=== PATIENT | male | born 1945 | race African-American/Black ===

== ENCOUNTER 2016-12-20 11:49 | Inpatient (IN) | payer OTHER ==
[~2016-12-20] VITALS: Ht 182.9 cm; Wt 83.9 kg
--- NOTE | 2016-12-20 12:11 | NUR ---
HX PANCREATIC CANCER
--- NOTE | 2016-12-20 12:11 | NUR ---
EFRAIN FROM HOME FOR GENERALIZED WEAKNESS. PT STATES HE'S BEEN TOOK WEAK TO GET UP. DENIES CP/SOB/N/V/D. C/O POOR APPETITE. MUCOUS MEMBRANES DRY
--- NOTE | 2016-12-20 12:27 | NUR ---
MINA ESQUIVEL TO BEDSIDE FOR EVAL.
--- NOTE | 2016-12-20 12:34 | ED GI/GU/ABDOMINAL COMPLAINT ---
History of Present Illness General Chief Complaint: General Adult Stated Complaint: BIBA GENERALIZED WEAKNESS Source: patient Exam Limitations: no limitations Allergies Coded Allergies: No Known Allergies (12/20/16) Reconcile Medications Bicalutamide 50 MG TABLET 1 TAB PO DAILY UNKNOWN (Reported) Diclofenac Sodium (Voltaren) 1 % GEL..GRAM. 1 GM TOP AD PAIN/INFLAMMATION ( Reported) apply to affected area(s) Hydroxychloroquine Sulfate 200 MG TABLET 1 TAB PO BID UNKNOWN (Reported) Ibuprofen (Advil) 200 MG CAPSULE 1 CAP PO DAILY PAIN (Reported) Leuprolide Acetate (Lupron Depot) 45 MG (6 MONTH) SYRINGEKIT 45 MG IM Q6M UNKNOWN (Reported) Prednisone 5 MG TABLET 1 TAB PO BID STEROID (Reported) Triage Note: BIBA FROM HOME FOR GENERALIZED WEAKNESS. PT STATES HE'S BEEN TOOK WEAK TO GET UP. DENIES CP/SOB/N/V/D. C/O POOR APPETITE. MUCOUS MEMBRANES DRY Triage Nurses Notes Reviewed? yes HPI: 71-year-old male here with multiple medical complaints. For the past 3 or 4 months he has had generalized abdominal pain and distention, mostly right side upper aspect. He has had decreased appetite, weight loss, increased thirst, generalized fatigue and weakness. He was scheduled to see his primary care doctor today but felt too weak to go and they recommended he come to the emergency room for further evaluation. He denies any cough or fever. He has history of prostate cancer with prostate resection approximately 12 years ago. He states he is currently being treated for prostate cancer however he denies being on chemotherapy or radiation. He is a poor historian (ALVIN ENRIQUEZ,MANDI) Vital Signs & Intake/Output Vital Signs & Intake/Output Vital Signs Date Time Temp Pulse Resp B/P Pulse O2 O2 Flow FiO2 Ox Delivery Rate 12/21 0752 97.8 102 20 154/70 96 Room Air 12/20 2305 98.0 98 18 152/82 96 Room Air 12/20 2117 146/78 12/20 2019 97.5 101 16 175/81 97 Room Air 12/20 1815 99.5 102 16 170/80 97 Room Air 12/20 1348 97.9 104 18 167/79 100 Nasal 2.0L Cannula ED Intake and Output 12/21 0000 12/20 1200 Intake Total 1000 Output Total Balance 1000 Intake, IV 1000 Patient 185 lb Weight Past History Medical History Any Pertinent Medical History? see below for history Other Medical Hx: Prostate cancer, malignancy, status post surgery 2003 which was unsuccessful, status post radiation treatment which was unsuccessful. Thyroid disorder, hyperlipidemia, gout, normocytic anemia, impotence, history of smoking, hypertension, rheumatoid arthritis, osteoarthritis, joint pain, urinary incontinence, occult blood in stool, erosive gastritis Surgical History Surgical History: PROSTATECTOMY 2002 Psychosocial History What is your primary language Kyrgyz Family History Hx Contributory? No (MANDI LEMUS) Review of Systems Review of Systems Constitutional: Reports: see HPI. EENTM: Reports: no symptoms. Respiratory: Reports: no symptoms. Cardiovascular: Reports: no symptoms. GI: Reports: see HPI. Denies: diarrhea, nausea, vomiting. Genitourinary: Reports: no symptoms. Musculoskeletal: Reports: no symptoms. Skin: Reports: no symptoms. Neurological/Psychological: Reports: no symptoms. Hematologic/Endocrine: Reports: no symptoms. Immunologic/Allergic: Reports: no symptoms. All Other Systems: Reviewed and Negative (MANDI LEMUS) Physical Exam Physical Exam Respiratory: normal breath sounds, chest non-tender, no respiratory distress Cardiovascular: tachycardia Gastrointestinal: normal bowel sounds, soft, TENDERNESS DIFFUSELY TO THE ABDOMEN MOSTLY UPPER ABDOMEN, MOST SEVERE AT THE RIGHT UPPER QUADRANT. mILD DIFFUSE ABDOMINAL DISTENTION. sMALL SEEMINGLY FAT CONTAINED REDUCIBLE UMBILICAL HERNIA. Comments: Well-developed well-nourished no apparent distress. Elderly male, appears weak. Mildly cachectic with muscle wasting noted HEENT: Atraumatic, extraocular motion intact, dry mucous membranes Neck: Supple, no lymphadenopathy Back: Nontender Respiratory: No respiratory distress Extremities: +1 bilateral lower extremity pitting edema, full range of motion Neuro: Alert and oriented x3 Psych: Mood affect normal, Skin: Warm and dry, no rash on exposed skin (MANDI LEMUS) Core Measures ACS in differential dx? No Severe Sepsis Present: No Septic Shock Present: No (VICKIE ESTEBAN,FLORENCIO Adams) Progress Differential Diagnosis: AAA, AMI, appendicitis, biliary colic, bowel obstruction , colon cancer, cholecystitis, diverticulitis, epididymitis, esophageal varices, gastritis, hepatitis, hernia, hemorrhoids, ischemic bowel, inflamm bowel dis, [place] tear, orchitis, pancreatitis, prostatitis, peptic ulcer, PUD/GERD, perforated viscous, pyelonephritis, SBO, STD, testicular torsion, ureterolithiasis, urinary retention, urethritis, UTI/pyelo Diagnostic Imaging: Viewed by Me: Radiology Read, CT Scan. Discussed w/RAD: Radiology Read, CT Scan. Radiology Impression: PATIENT: DIYA BANDA PRESENT AGE: 71 PATIENT ACCOUNT NO: [id number] : 47 LOCATION: [facility] ORDERING PHYSICIAN: MANDI ENRIQUEZ SERVICE DATE: 12/20/16 EXAM TYPE: CAT - CT ABD & PELVIS W IV CONTRAST EXAMINATION: CT ABDOMEN AND PELVIS WITH CONTRAST CLINICAL INFORMATION: Intra-abdominal infection. Cholangitis. Abdominal pain. Elevated LFTs. Status post radical prostatectomy. COMPARISON: CT scan abdomen pelvis 05/28/2016. TECHNIQUE: Multidetector volumetric imaging was performed of the abdomen and pelvis before and after the IV administration of 98 mL of Omnipaque 320 intravenous contrast. Sagittal and coronal reformatted images were obtained on the technologist's workstation. DLP: 299.42 mGy-cm FINDINGS: LUNG BASES: 0.8 cm lung nodule along the major fissure in the right lung at the right lung base axial image 45 (3). LIVER, GALLBLADDER, AND BILIARY TREE: Extensive hepatic metastasis. Low attenuating masses throughout both right and left lobes of liver. These are more confluent in the right lobe than the left. No intrahepatic bile duct dilatation. The gallbladder is unremarkable with no evidence of radiopaque gallstones, gallbladder wall thickening, or obvious pericholecystic inflammatory changes. PANCREAS: Unremarkable. SPLEEN: 2.2 x 2.6 cm low attenuating mass lesion at the dome of the spleen suspicious of metastasis. ADRENAL GLANDS: Left adrenal nodule measuring 1.4 cm AP. This is unchanged since CAT scan of 05/28/2016. The right adrenal gland is normal. KIDNEYS AND URETERS: There is hydronephrosis of the right kidney with dilatation of the right renal pelvis calyces and the right ureter. The dilatation is due to obstruction of the right ureter by retroperitoneal lymphadenopathy. At about the level aortic bifurcation extending into the right common iliac external and internal iliac chains there is lymphadenopathy. The adenopathy engulfs the right common iliac artery and causes the obstruction of the right ureter. The left kidney and ureter are normal. [place] for penile implant seen to the right anterior aspect of the bladder BLADDER: Unremarkable. GASTROINTESTINAL TRACT: There is diverticulosis of left colon sigmoid without diverticulitis. No acute change of the bowel. No bowel obstruction. No bowel wall thickening or edema. ABDOMINAL WALL: Fat-containing umbilical hernia. Defect at the abdominal wall measures 2.7 cm transverse, axial image 454 (3). LYMPH NODES: There is bulky retroperitoneal lymphadenopathy that engulfs the right common iliac artery and extends into the external iliac and internal iliac chains. Adenopathy engulfs also the distal IVC. Lymph node measures 4.4 cm AP on image 473 (3) at the right common iliac chain. This mass causes obstruction of the right ureter. VASCULAR: Scattered vascular wall calcifications of aorta and iliac arteries without aneurysm. The right common iliac vessels are involved by enlarged mass of lymph nodes. PELVIC VISCERA: Status post prostatectomy with surgical clips the retrovesical region. Status post penile implant. [place] in the right anterior region of pelvis adjacent to the bladder. A small amount of fluid in the cul-de- sac. OSSEOUS STRUCTURES: Low attenuating lesion in the T11, T12, L2, L4, L5 and S1 vertebrae with evidence of bone destruction suspicious of metastasis. IMPRESSION: 1. Extensive hepatic metastasis. 2. Osseous metastasis. Bone scan could be helpful for further assessment. 3. Retroperitoneal adenopathy. This is causing obstruction of the right kidney. 4. Low attenuating mass and spleen suspicious for metastasis. 5. Penile implant. 6. Status post prostatectomy. 7. 0.8 cm lung nodule right lower lobe. This is suspicious for metastasis. Consider CT chest for further evaluation. This critical result was discussed with MINA Horn on 12/20/2016, 3:05 PM and it was ascertained that the content and urgency of the report was understood at the time of direct communication. DICTATED BY: FRANCO GRUBER MD DATE/TIME DICTATED:12/20/16 1448 SEAMER ELASTIC BAND :SPENCER CXR Impression: PATIENT: DIYA BANDA PRESENT AGE: 71 PATIENT ACCOUNT NO: [id number] : 47 LOCATION: [facility] ORDERING PHYSICIAN: MANDI ENRIQUEZ SERVICE DATE: 12/20/16 EXAM TYPE: RAD - XRY-PORTABLE CHEST XRAY EXAMINATION: XR PORTABLE CHEST CLINICAL INFORMATION: Generalized weakness. COMPARISON: None TECHNIQUE: Portable AP view of the chest was obtained. FINDINGS: Cardiac leads overlie the chest. The lungs are well expanded. There is no focal consolidation, edema, or effusion. No pneumothorax. The cardiomediastinal silhouette is within normal limits. No acute osseous abnormality. IMPRESSION: Clear lungs. DICTATED BY: LETY WILLIAM MD DATE/ TIME DICTATED:12/20/161323 SEAMER ELASTIC BAND:SPENCER DATE/TIME TRANSCRIBED: 11/25 Initial ED EKG: NSR, rate (112), no ST T wave changes Prior EKG: unchanged Rhythm Strip: sinus tachycardia Comments: Patient treated with IV fluids, will obtain labs and CT scan. Patient has significant metastatic disease, significant hypercalcemia and leukocytosis. His chest x-ray is clear. I discussed with the radiologist CT scan findings, he does not see any significant evidence for acute cholecystitis. Blood cultures and lactic acid 2 were obtained, 2 L of IV fluid were given. He 'll require admission to the hospital. We'll cover him with broad-spectrum antibiotics Due to his right kidney obstruction, I discussed this with Dr. Chambers from urology, he will evaluate the patient and plan on stenting tomorrow (ALVIN ENRIQUEZ,MANDI) Plan of Care: Orders Procedure Date/time Status Regular Diet 12/21 B Active PHOSPHORUS 12/21 0600 Complete MAGNESIUM 12/21 0600 Complete CBC WITHOUT DIFFERENTIAL 12/21 0600 Complete CALCIUM 12/21 0600 Complete BASIC ELECTROLYTES PLUS BUN&CR 12/21 0600 Complete Therapeutic Activities 12/21 UNK Complete PT EVAL MOD COMPLEX 30 MIN 12/21 UNK Complete BONE SCAN 12/21 UNK Active Teach/Educate 12/20 2245 Active Nutritional Intake, Monitor 12/20 224 Active Isolation 12/20 224 Active Patient Care Conference 12/20 2246 Active Activity/Ambulation 12/20 2246 Active CALCIUM 12/20 1999 Complete BASIC ELECTROLYTES PLUS BUN&CR 12/20 1999 Complete Admit to inpatient 12/20 1811 Active Pathway - chart 12/20 1800 Active PT Evaluate & Treat 12/20 1747 Active Pathway - chart 12/20 1747 Active House Staff 12/20 1747 Active Code Status 12/20 1747 Active Patient Data 12/20 1608 Active LACTIC ACID 12/20 1517 Complete BLOOD CULTURE 12/20 1516 Active Add-on Test (ER Only) 12/20 1407 Active PARTIAL THROMBOPLASTIN TIME 12/20 1245 Complete PROTHROMBIN TIME 12/20 1245 Complete LACTIC ACID 12/20 1245 Complete VTE Mechanical Prophylaxis 12/20 UNK Active Vital Signs 12/20 UNK Active Precautions 12/20 UNK Active Nursing Misc 12/20 UNK Active Intake & Output 12/20 UNK Active Current Medications Sig/Gagandeep Start time Last Medication Dose Stop Time Status Admin Acetaminophen 650 MG Q6P PRN 12/20 1800 AC (Tylenol) Oxycodone HCl 10 MG Q6P PRN 12/20 1800 AC (Roxicodone) Laboratory Tests 12/21/16 0650: Anion Gap 9, Estimated GFR 55 L, BUN/Creatinine Ratio 28.5 H, Calcium 14.9 *H, Phosphorus 3.9, Magnesium 1.9, CBC w Diff NO MAN DIFF REQ, RBC 4.07 L, MCV 86.2 , MCH 28.0, RDW 13.5, MPV 10.6 H, Gran % 81.7 H, Lymphocytes % 7.4 L, Monocytes % 10.4 H, Eosinophils % 0.5, Basophils % 0 L, Absolute Granulocytes 14.1 H, Absolute Lymphocytes 1.3, Absolute Monocytes 1.8 H, Absolute Eosinophils 0.1, Absolute Basophils 0, PUBS MCHC 32.5 L 12/20/162106: Urine Color YEL, Urine Clarity CLEAR, Urine pH 6.0, Ur Specific [place] 1.015, Urine Protein NEG, Urine Ketones NEG, Urine Nitrite NEG, Urine Bilirubin NEG, Urine Urobilinogen 0.2, Ur Leukocyte Esterase NEG, Ur Microscopic EXAM NOT REQUIRED, Urine Hemoglobin NEG, Urine Glucose NEG 12/20/162052: Anion Gap 7, Estimated GFR > 60, BUN/Creatinine Ratio 33.6 H, Calcium 15.0 *H 12/20/16 1525: Lactic Acid 1.9 Microbiology 12/20 1537 BLOOD: Blood Culture - RECD 12/20 1525 BLOOD: Blood Culture - RECD Departure Departure Disposition: STILL A PATIENT Condition: Stable Clinical Impression Primary Impression: Hypercalcemia Secondary Impressions: Generalized weakness Leukocytosis Qualifiers: Leukocytosis type: unspecified Qualified Code: D72.829 - Elevated white blood cell count, unspecified Obstruction of kidney SIRS (systemic inflammatory response syndrome) Transaminitis Ruled Out Impressions: Hypercalcemia associated with chronic dialysis Referrals: [facility]INO [facility] (PCP/Family) Departure Forms: Customer Survey General Discharge Information Admission Note Spoke With: SHELL JACOBSON MD Documentation of Exam: Documentation of any treatments & extenuating circumstances including Concerns Regarding Discharge (functional status, medication knowledge or non-compliance, living conditions, etc.) that warrant an admission rather than observation: Hypercalcemia to 17,000, Patient meeting steers criteria, possible sepsis, lactic acid elevated, white count 18,000, he has metastatic disease with transaminitis and an obstructed right kidney from lymphadenopathy and will likely require a renal stenting. Possible early cholangitis or pyelonephritis, we'll cover with broad-spectrum antibiotics with Rocephin and Zithromax and admitted to the hospitalist service. Call was placed to urology to have them evaluate him for possible ureteral stenting or nephrostomy tube (MANDI LEMUS) PA/USED EQUIPMENT SALES REPRESENTATIVE Co-Sign Statement Statement: ED Attending supervision documentation- [X] I saw and evaluated the patient. I have also reviewed all the pertinent lab results and diagnostic results. I agree with the findings and the plan of care as documented in the PA's/USED EQUIPMENT SALES REPRESENTATIVE's documentation. [] I have reviewed the ED Record and agree with the PA's/USED EQUIPMENT SALES REPRESENTATIVE's documentation. [] Additions or exceptions (if any) to the PAs/USED EQUIPMENT SALES REPRESENTATIVE's note and plan are summarized below: [] (VICKIE ESTEBAN,FLORENCIO Adams) Transaminitis Ruled Out Impressions: Hypercalcemia associated with chronic dialysis Referrals: AKIL BACK,TINO Sanchez (PCP/Family) Departure Forms: Customer Survey General Discharge Information Admission Note Spoke With: SHELL JACOBSON MD Documentation of Exam: Documentation of any treatments & extenuating circumstances including Concerns Regarding Discharge (functional status, medication knowledge or non-compliance, living conditions, etc.) that warrant an admission rather than observation: Hypercalcemia to 17,000, Patient meeting steers criteria, possible sepsis, lactic acid elevated, white count 18,000, he has metastatic disease with transaminitis and an obstructed right kidney from lymphadenopathy and will likely require a renal stenting. Possible early cholangitis or pyelonephritis, we'll cover with broad-spectrum antibiotics with Rocephin and Zithromax and admitted to the hospitalist service. Call was placed to urology to have them evaluate him for possible ureteral stenting or nephrostomy tube (MANDI LEMUS) PA/USED EQUIPMENT SALES REPRESENTATIVE Co-Sign Statement Statement: ED Attending supervision documentation- [X] I saw and evaluated the patient. I have also reviewed all the pertinent lab results and diagnostic results. I agree with the findings and the plan of care as documented in the PA's/USED EQUIPMENT SALES REPRESENTATIVE's documentation. [] I have reviewed the ED Record and agree with the PA's/USED EQUIPMENT SALES REPRESENTATIVE's documentation. [] Additions or exceptions (if any) to the PAs/USED EQUIPMENT SALES REPRESENTATIVE's note and plan are summarized below: [] (VICKIE ESTEBAN,FLORENCIO Adams)
--- NOTE | 2016-12-20 12:49 | NUR ---
BLOOD DRAWN AND SENT TO LAB. SSTX2,LAV,CLARK,BLUE
[2016-12-20 12:53] LABS: ABSOLUTE BASOPHIL COUNT 0 /CUMM (0.0-0.2); ABSOLUTE EOSINOPHIL COUNT 0 /CUMM (0.0-0.7); ABSOLUTE GRANULOCYTE CT 15.7 /CUMM (1.4-6.5); ABSOLUTE LYMPH COUNT 1.6 /CUMM (1.2-3.4); ABSOLUTE MONOCYTE COUNT 1.1 /CUMM (0.10-0.60); BASOPHIL % 0.1 % (0.0-2.0); EOSINOPHIL % 0.1 % (0-5); HEMATOCRIT 41.4 % (42-52); MEAN CORPUSCULAR HGB 27.8 PG (27.0-31.0); MEAN CORPUSCULAR HGB CONC 32.3 G/DL (33.0-37.0); MEAN PLATELET VOLUME 9.3 FL (7.4-10.4); PLATELET COUNT 302 /CUMM (130-400); RBC DISTRIBUTION WIDTH 13.3 % (11.5-14.5); RED BLOOD CELL CT 4.81 /CUMM (4.70-6.10); WHITE BLOOD CELL COUNT 18.4 /CUMM (4.8-10.8)
[2016-12-20 12:58] LABS: GRANULOCYTE % 85.3 % (42.2-75.2)
--- NOTE | 2016-12-20 13:18 | NUR ---
PT UNABLE TO PROVIDE URINE SAMPLE AT THIS TIME
--- NOTE | 2016-12-20 13:29 | RADIOLOGY REPORT ---
EXAMINATION: XR PORTABLE CHEST CLINICAL INFORMATION: Generalized weakness. COMPARISON: None TECHNIQUE: Portable AP view of the chest was obtained. FINDINGS: Cardiac leads overlie the chest. The lungs are well expanded. There is no focal consolidation, edema, or effusion. No pneumothorax. The cardiomediastinal silhouette is within normal limits. No acute osseous abnormality. IMPRESSION: Clear lungs.
--- NOTE | 2016-12-20 13:38 | NUR ---
CRITICAL TEST RESULTS [id number] DIYA BANDA 71 M TESTS AND RESULTS: CALCIUM 17.2 Results received and read back by: TYLER AUSTIN Results received date and time: 12/20/16 7717 The following provider was notified of the results, and read the results back: MINA ESQUIVEL Notified date and time: 12/20/16 at 4435
--- NOTE | 2016-12-20 14:20 | NUR ---
CRITICAL TEST RESULTS [id number] DIYA BANDA 71 M TESTS AND RESULTS: LACTIC ACID 2.6 Results received and read back by: TYLER AUSTIN Results received date and time: 12/20/16 1420 The following provider was notified of the results, and read the results back: MINA ESQUIVEL Notified date and time: 12/20/16 at 1420
[2016-12-20 14:23] LABS: PTT 35 SEC (25-37)
--- NOTE | 2016-12-20 14:34 | NUR ---
PT TO CT VIA STRETCHER
--- NOTE | 2016-12-20 15:23 | NUR ---
SECOND NS LITER HUNG PER EMAR. PT ATTEMPTED TO PROVIDE URINE SPECIMEN BUT WAS UNABLE TO VOID IN THE URINAL AT THIS TIME.
--- NOTE | 2016-12-20 15:26 | CT SCAN REPORT ---
EXAMINATION: CT ABDOMEN AND PELVIS WITH CONTRAST CLINICAL INFORMATION: Intra-abdominal infection. Cholangitis. Abdominal pain. Elevated LFTs. Status post radical prostatectomy. COMPARISON: CT scan abdomen pelvis 05/28/2016. TECHNIQUE: Multidetector volumetric imaging was performed of the abdomen and pelvis before and after the IV administration of 98 mL of Omnipaque 320 intravenous contrast. Sagittal and coronal reformatted images were obtained on the technologist's workstation. DLP: 299.42 mGy-cm FINDINGS: LUNG BASES: 0.8 cm lung nodule along the major fissure in the right lung at the right lung base axial image 45 (3). LIVER, GALLBLADDER, AND BILIARY TREE: Extensive hepatic metastasis. Low attenuating masses throughout both right and left lobes of liver. These are more confluent in the right lobe than the left. No intrahepatic bile duct dilatation. The gallbladder is unremarkable with no evidence of radiopaque gallstones, gallbladder wall thickening, or obvious pericholecystic inflammatory changes. PANCREAS: Unremarkable. SPLEEN: 2.2 x 2.6 cm low attenuating mass lesion at the dome of the spleen suspicious of metastasis. ADRENAL GLANDS: Left adrenal nodule measuring 1.4 cm AP. This is unchanged since CAT scan of 05/28/2016. The right adrenal gland is normal. KIDNEYS AND URETERS: There is hydronephrosis of the right kidney with dilatation of the right renal pelvis calyces and the right ureter. The dilatation is due to obstruction of the right ureter by retroperitoneal lymphadenopathy. At about the level aortic bifurcation extending into the right common iliac external and internal iliac chains there is lymphadenopathy. The adenopathy engulfs the right common iliac artery and causes the obstruction of the right ureter. The left kidney and ureter are normal. [place] for penile implant seen to the right anterior aspect of the bladder BLADDER: Unremarkable. GASTROINTESTINAL TRACT: There is diverticulosis of left colon sigmoid without diverticulitis. No acute change of the bowel. No bowel obstruction. No bowel wall thickening or edema. ABDOMINAL WALL: Fat-containing umbilical hernia. Defect at the abdominal wall measures 2.7 cm transverse, axial image 454 (3). LYMPH NODES: There is bulky retroperitoneal lymphadenopathy that engulfs the right common iliac artery and extends into the external iliac and internal iliac chains. Adenopathy engulfs also the distal IVC. Lymph node measures 4.4 cm AP on image 473 (3) at the right common iliac chain. This mass causes obstruction of the right ureter. VASCULAR: Scattered vascular wall calcifications of aorta and iliac arteries without aneurysm. The right common iliac vessels are involved by enlarged mass of lymph nodes. PELVIC VISCERA: Status post prostatectomy with surgical clips the retrovesical region. Status post penile implant. [place] in the right anterior region of pelvis adjacent to the bladder. A small amount of fluid in the cul-de-sac. OSSEOUS STRUCTURES: Low attenuating lesion in the T11, T12, L2, L4, L5 and S1 vertebrae with evidence of bone destruction suspicious of metastasis. IMPRESSION: 1. Extensive hepatic metastasis. 2. Osseous metastasis. Bone scan could be helpful for further assessment. 3. Retroperitoneal adenopathy. This is causing obstruction of the right kidney. 4. Low attenuating mass and spleen suspicious for metastasis. 5. Penile implant. 6. Status post prostatectomy. 7. 0.8 cm lung nodule right lower lobe. This is suspicious for metastasis. Consider CT chest for further evaluation. This critical result was discussed with MINA Horn on 12/20/2016, 3:05 PM and it was ascertained that the content and urgency of the report was understood at the time of direct communication.
[2016-12-20] MEDS ORDERED: PREDNISONE5 M1 PO (15:29)
[2016-12-20] MEDS ORDERED: ADVIL200 M1 PO (15:29)
--- NOTE | 2016-12-20 15:30 | NUR ---
REPEAT LACTIC ACID AND BLOOD CULTURE SENT TO LAB.
[2016-12-20] MEDS ORDERED: BICALUTAMIDE50 M1 PO (15:42)
[2016-12-20] MEDS ORDERED: HYDROXYCHLOROQ200 M2 PO (15:42)
[2016-12-20] MEDS ORDERED: LUPRON DEPOT45 M1 IM (15:44)
[2016-12-20] MEDS ORDERED: VOLTAREN100 GM TOP (15:45)
--- NOTE | 2016-12-20 17:05 | NUR ---
HOUSE STAFF AT BEDSIDE
--- NOTE | 2016-12-20 17:46 | History & Physical ---
RICK ESTEBAN,[facility] 12/20/16 1744: General Information and HPI MD Statement: I have seen and personally examined DIYA BANDA and documented this H&P. The patient is a 71 year old M who presented with a patient stated chief complaint of generalized weakness and abdominal pain. Source of Information: patient Exam Limitations: no limitations History of Present Illness: This is a 71-year-old very pleasant gentleman with a past medical history of prostate cancer status post prostatectomy, and on Lupron and bicalutamide therapy, HLD, thyroid disorder, rheumatoid arthritis, erosive gastritis, presents to [facility] with complaints of a constellation of symptoms. Pt reports generalized weakness, abdominal pain, decreased appetite, constipation, and inability to ambulate around the house. These symptoms started about 3-4 months ago, however in the past 2 weeks, his symptoms have progressively worsen. Pt localizes his abdominal pain around the right hypochondriac region, sometimes radiating to his back, describing it as sharp pain and rating it a 10 out of 10 when is worse. Pain is worsened by movement, and is not related to food intake. No associated nausea, vomiting or diarrhea. Patient denies any shortness of breath, chest pain, palpitation, fever, chills, nausea, vomiting, dysuria, muscle spasm/ twitching, or confusion. At baseline, patient states that he is independent with his ADLs and ambulates around the house with an aide of a walker. Allergies/Medications Allergies: Coded Allergies: No Known Allergies (12/20/16) Home Med list Bicalutamide 50 MG TABLET 1 TAB PO DAILY UNKNOWN (Reported) Diclofenac Sodium (Voltaren) 1 % GEL..GRAM. 1 GM TOP AD PAIN/INFLAMMATION ( Reported) apply to affected area(s) Hydroxychloroquine Sulfate 200 MG TABLET 1 TAB PO BID UNKNOWN (Reported) Ibuprofen (Advil) 200 MG CAPSULE 1 CAP PO DAILY PAIN (Reported) Leuprolide Acetate (Lupron Depot) 45 MG (6 MONTH) SYRINGEKIT 45 MG IM Q6M UNKNOWN (Reported) Prednisone 5 MG TABLET 1 TAB PO BID STEROID (Reported) Past History Medical History Other Medical Hx: Prostate cancer, malignancy, status post surgery 2002 which was unsuccessful, status post radiation treatment which was unsuccessful. Thyroid disorder, hyperlipidemia, gout, normocytic anemia, impotence, history of smoking, hypertension, rheumatoid arthritis, osteoarthritis, joint pain, urinary incontinence, occult blood in stool, erosive gastritis Surgical History Surgical History: PROSTATECTOMY 2002 Review of Systems Review of Systems Constitutional: Reports: see HPI. EENTM: Denies: blurred vision, double vision, visual changes. Cardiovascular: Denies: palpitations, peripheral edema, syncope. Respiratory: Denies: hemoptysis, orthopnea, short of breath. GI: Denies: distention, bowel incontinence, melena, nausea. Genitourinary: Reports: frequency. Denies: dysuria, hesitation. Musculoskeletal: Denies: joint pain, joint swelling, muscle pain. Skin: Denies: erythema, jaundice, lesions. Neurological/Psychological: Denies: confusion, depressed. Hematologic/Endocrine: Denies: bruising, bleeding. Immunologic/Allergic: Reports: no symptoms. Exam & Diagnostic Data Last 24 Hrs of Vital Signs/I&O Vital Signs Date Time Temp Pulse Resp B/P Pulse O2 O2 Flow FiO2 Ox Delivery Rate 12/20 1815 99.5 102 16 170/80 97 Room Air 12/20 1348 97.9 104 18 167/79 100 Nasal 2.0L Cannula 12/20 1215 97 Room Air 12/20 1200 98.6 113 18 172/89 97 Room Air Intake & Output 12/20 1600 12/20 0800 12/20 0000 Intake Total 1000 Output Total Balance 1000 Intake, IV 1000 Physical Exam General Appearance Alert, Oriented X3, Cooperative, mildly cachetic Skin No Significant Lesion HEENT Atraumatic, dry oral mucosa Neck Supple, No thryomegaly, +2 Carotid Pulse wo Bruit Lymphatic Cervical nl Cardiovascular Regular Rate, Normal S1, Normal S2, No Murmurs, Gallops, Rubs Lungs Clear to Auscultation, Normal Air Movement Abdomen distended, tender to palpation on RUQ with guarding. No rebound tenderness Neurological Normal Speech, Sensation Intact, hyporeflexia Extremities No Clubbing, mild pitting edema of feet b/l Vascular Normal Pulses, Pulses Symmetrical Diagnostic Data Other Results SERVICE DATE: 12/20/16-1406 EXAM TYPE: CAT - CT ABD & PELVIS W IV CONTRAST EXAMINATION: CT ABDOMEN AND PELVIS WITH CONTRAST CLINICAL INFORMATION: Intra-abdominal infection. Cholangitis. Abdominal pain. Elevated LFTs. Status post radical prostatectomy. COMPARISON: CT scan abdomen pelvis 05/28/2016. TECHNIQUE: Multidetector volumetric imaging was performed of the abdomen and pelvis before and after the IV administration of 98 mL of Omnipaque 320 intravenous contrast. Sagittal and coronal reformatted images were obtained on the technologist's workstation. DLP: 299.42 mGy-cm FINDINGS: LUNG BASES: 0.8 cm lung nodule along the major fissure in the right lung at the right lung base axial image 45 (3). LIVER, GALLBLADDER, AND BILIARY TREE: Extensive hepatic metastasis. Low attenuating masses throughout both right and left lobes of liver. These are more confluent in the right lobe than the left. No intrahepatic bile duct dilatation. The gallbladder is unremarkable with no evidence of radiopaque gallstones, gallbladder wall thickening, or obvious pericholecystic inflammatory changes. PANCREAS: Unremarkable. SPLEEN: 2.2 x 2.6 cm low attenuating mass lesion at the dome of the spleen suspicious of metastasis. ADRENAL GLANDS: Left adrenal nodule measuring 1.4 cm AP. This is unchanged since CAT scan of 05/28/2016. The right adrenal gland is normal. KIDNEYS AND URETERS: There is hydronephrosis of the right kidney with dilatation of the right renal pelvis calyces and the right ureter. The dilatation is due to obstruction of the right ureter by retroperitoneal lymphadenopathy. At about the level aortic bifurcation extending into the right common iliac external and internal iliac chains there is lymphadenopathy. The adenopathy engulfs the right common iliac artery and causes the obstruction of the right ureter. The left kidney and ureter are normal. [place] for penile implant seen to the right anterior aspect of the bladder BLADDER: Unremarkable. GASTROINTESTINAL TRACT: There is diverticulosis of left colon sigmoid without diverticulitis. No acute change of the bowel. No bowel obstruction. No bowel wall thickening or edema. ABDOMINAL WALL: Fat-containing umbilical hernia. Defect at the abdominal wall measures 2.7 cm transverse, axial image 454 (3). LYMPH NODES: There is bulky retroperitoneal lymphadenopathy that engulfs the right common iliac artery and extends into the external iliac and internal iliac chains. Adenopathy engulfs also the distal IVC. Lymph node measures 4.4 cm AP on image 473 (3) at the right common iliac chain. This mass causes obstruction of the right ureter. VASCULAR: Scattered vascular wall calcifications of aorta and iliac arteries without aneurysm. The right common iliac vessels are involved by enlarged mass of lymph nodes. PELVIC VISCERA: Status post prostatectomy with surgical clips the retrovesical region. Status post penile implant. [place] in the right anterior region of pelvis adjacent to the bladder. A small amount of fluid in the cul-de-sac. OSSEOUS STRUCTURES: Low attenuating lesion in the T11, T12, L2, L4, L5 and S1 vertebrae with evidence of bone destruction suspicious of metastasis. IMPRESSION: 1. Extensive hepatic metastasis. 2. Osseous metastasis. Bone scan could be helpful for further assessment. 3. Retroperitoneal adenopathy. This is causing obstruction of the right kidney. 4. Low attenuating mass and spleen suspicious for metastasis. 5. Penile implant. 6. Status post prostatectomy. 7. 0.8 cm lung nodule right lower lobe. This is suspicious for metastasis. Consider CT chest for further evaluation. This critical result was discussed with MINA Horn on 12/20/2016, 3:05 PM and it was ascertained that the content and urgency of the report was understood at the time of direct communication. DICTATED BY: FRANCO GRUBER MD Assessment/Plan Assessment: This is a 71-year-old male with an extensive history of prostate cancer including a remote history of prostatectomy, and a reported history of radiation therapy? currently on bicalutamide and Lupron hormonal therapy presents with generalized weakness since 3-4 months ago, worsening progression in the past 2 weeks. Patient is also endorsing right upper quadrant abdominal pain. Vital signs at admission: BP 167/79, pulse 104, temperature 97.9, respiratory 18 , O2 97 on room air. Labs are remarkable for hypercalcemia with a level of 17.2. CT of the abdomen and pelvis was remarkable for metastatic hepatic lesion and multiple low attenuating lesions at T11, T12, L2 L4, L5 and S1 with evidence of osteoblastic presentation suspicious of metastasis. Assessment and plan #Hypercalcemia Patient symptoms of lethargy/weakness, abdominal, polyuria, and dehydration are consistent with hypercalcemia. 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 Patient will benefit from aggressive hydration and biphosphonate therapy. Plan * Admit to general medicine floor * Normal saline hydration at 200 mls/hr * Strict ins and outs * IV pamidronate * Serial calcium q 6-8h * Will obtain oncology consult #Vertebral metastasis CT exhibited low attenuation lesions from thoracic to sacral spine suggests metastasis. Currently patient is not endorsing any significant back pain. However, will need to evaluate whether patient is a candidate for palliative radiation. Plan Will consult oncology #Liver mets Hypoattenuation areas seen on CT. #Ureteral obstruction with lymphadenopathy (right side) Will obtain urology consult for evaluation of stent placement. #Leukocytosis Most likely hemoconcentration and not infectious etiology in the setting of physical examination suggesting dehydration and elevated BUN/creatinine ratio. Patient is afebrile. Will continue to trend CBC #Hyperkalemia Mild elevation. Will trend BEP. As Ranked By This Provider Problem List: 1. Leukocytosis Qualifiers Leukocytosis type: unspecified Qualified Code: D72.829 - Elevated white blood cell count, unspecified 2. Hypercalcemia 3. Obstruction of kidney Core Measures/Miscellaneous Acute Coronary Syndrome ACS Diagnosis: No Cerebrovascular Accident CVA/TIA Diagnosis: No Congestive Heart Failure CHF Diagnosis: No Venous Thromboembolism VTE Risk Factors: Acute medical illness, Age > 40 VTE Prophylaxis Ordered Inpt: Mechanical (ALPS/TEDS) No Mech VTE prophylaxis d/t: No contraindications No VTE Pharm Prophylaxis d/t: No contraindications VTE Diagnosis: No VTE Type: NONE VTE Confirmed by (Test): NONE Severe Sepsis Severe Sepsis Present: No Septic Shock Septic Shock Present: No Miscellaneous Documentation Attending Case Discussed With: SHELL JACOBSON MD Primary Care Physician: [employer] Patient sees these Specialists oncologist Level of Patient Care: General Medicine SHELL JACOBSON 12/20/16 9132: Attending MD Review Statement Attending Statement Attending MD Statement: examined this patient, discuss w/resident/PA/PERSONAL INVESTMENT ADVISER, agreed w/resident/PA/PERSONAL INVESTMENT ADVISER, reviewed EMR data (avail) Attending Assessment/Plan: 71-year-old male with past medical history of prostate cancer status post prostatectomy in the past many years ago, currently on hormonal therapy admitted with chief complaint of generalized weakness and decreased by mouth intake and decreased urine output worse over the last 2 weeks. Patient has been having generalized weakness over the last few months especially last 3-4 months and since it was progressively getting worse decided to come to the emergency room.. Patient also complained of abdominal pain in the right upper quadrant and constipation with last bowel movement being 7 days ago. In emergency room patient was found to have severe hypercalcemia with calcium level of 17.2 and hyperkalemia with potassium of 5.2. Patient on CAT scan was found to have metastatic disease to the liver as well as multiple lesions in the spine at multiple levels as well as lymphadenopathy involving the iliac area and the retroperitoneal areas causing right ureteral obstruction. Patient on exam was found to have dry mucous membranes ,decreased skin turgor and right upper quadrant tenderness. Assessment and plan 1 hypercalcemia severe-Will give IV fluids as with normal saline at 200 cc an hour. Patient did receive IV fluid boluses in the emergency room. We will also give IV pamidronate given the severe hypercalcemia and will get oncology on board. We'll do serial calcium checks every 8 hours for now. #2. Metastatic disease to liver with transaminitis as well as metastatic disease to spine-Will get oncology on board and see if patient would need radiation therapy. Discussed with patient the CAT scan findings of metastatic disease to the liver as well as spine as well as ureteral obstruction. Patient does understand the severity of the disease and the limited treatment options. #3. Right ureteral obstruction from lymphadenopathy-Will get urology consult to see if patient would be a candidate for stent placement versus IR guided nephrostomy tube placement. We will put patient on strict intake and output to monitor his urine output and will watch for fluid overload. Next Discussed with patient in detail the care plan. PATSY VALDES 12/20/16 4785: Past Family/Social History Family History Relations & Conditions if any Relation not specified for: *No pertinent family history Resident Review Statement Resident Statement: examined this patient, discussed with [employer] internship, agreed with [employer]ba internship, reviewed EMR data (avail) Other Findings: She is a 71 years old gentleman with past medical history significant for prostate cancer diagnosed since 2002 status post prostatectomy chemotherapy and radiotherapy currently on hormonal therapy, rheumatoid arthritis on hydroxychloroquine who presented with 2-3 month history of progressive weakness that has worsened in the past 2 weeks impairing his ability to move around even doing short errands like went to the bathroom. Patient denies any shortness of breath associated with weakness, he denies any chest pain palpitation dizziness or lightheadedness but reports decreased appetite weight loss and constipation with almost 10 days without a bowel movement. This patient used to get his treatment at [facility] he is not very sure about his treatment regimen has changed doctors recently and does not remember the name of his oncologist. He volunteers right hypochondrium pain aggravated with movement related with diet radiating to the back 10 out of 10 at its center here form. He denies any fevers or chills and reports that he gets slight relief with [id number] pain medication which she has used sparingly. He has back pain that is nonradiating and not associated with lower limb weakness tingling or numbness but reports 2 weeks of urinary retention with wound tightly urine leaks without any dysuria. On arrival in the ER the patient was afebrile tachycardic at 113 and respiration of 18 blood pressure 170/90 and saturating 97% on room air Physical examination: dry mucous membranes, foul-smelling upon talking, poor oral hygiene, reduced skin turgor CVS: regular rate and rhythm no murmurs RS: clear lungs bilaterally Abdomen: normal contour normal moving with respiration, tenderness especially in the right hypochondrium area could not establish Coleman's sign due to tenderness and no rebound tenderness. Extremities: mild pitting edema Labs: leukocytosis 18,400 with a granulocyte TCC of 85.3%, borderline hyperkalemia of 5.2, raised BUN of 39 with creatinine of 1.2 no previous values patient has no lab values in [place], hypercalcemia or 17.2 by raised AST and ALT of 209 and 111, high alkaline phosphatase of 436 Imaging: CT abdomen and pelvis extensive metastasis to the liver, spleen, enlarged lymph nodes with obstruction of renal pelvis, bone metastasis around several lumbar vertebra assessment and plan 71 years old presenting with advanced metastatic prostate cancer with hypercalcemia of 17.2 and lethargy for the past 2 months worsening in the past 2 weeks with difficulty passing urine and incontinence, he has reduced appetite and constipation for the past 10 days. Problem list Hypercalcemia Leukocytosis Metastatic prostate cancer Transaminitis Acute kidney injury Admitting the patient to general medicine floor Vitals every shift Bladder scan every shift if urine more than 400 mL straight cath protocol Hydration with normal saline at 200 mL/h to maintain high urine output of more than 100 mL per hour, strict I&O's Pamidronate 60 mg stat Cover the patient empirically with Ceftriaxone 100mg daily Urine culture, blood culture Trend her liver functions and renal functions PT evaluation a.m. Bowel regimen with MiraLAX and senna if no bowel movement till tomorrow consider enema Pain management with acetaminophen, Roxicodone and morphine Urologist and oncologist consults CODE STATUS so far is full code, discussion with family in the a.m. on CODE STATUS
--- NOTE | 2016-12-20 18:24 | NUR ---
AVSS. PT MORE ALERT, SKIN PINK.
--- NOTE | 2016-12-20 18:27 | Admission Certification ---
Admission Certification Certification Statement - As attending physician, I certify that at the time of - admission, based on clinical presentation, severity of - symptoms, need for further diagnostic testing and - therapeutic interventions, and risk of adverse outcomes - without in-hospital treatment, in my clinical assessment, - this patient requires an acute hospital stay for a minimum - of two nights or longer. I have also considered psychsocial - factors such as support system, advanced age, financial - issues, cognitive issues, and failed out-patient treatments, - past re-admission history, safety of patient, and lack of - compliance as applicable. Specific rationale supporting this admission is: severe hypercalcemia and metastatic prostate cancer with rt ureteral obstruction and metastatic bone and liver disease
--- NOTE | 2016-12-20 19:27 | NUR ---
PT HAS BED ASSIGNMENT 217-1. BED IS NOT CLEANED YET
--- NOTE | 2016-12-20 19:42 | NUR ---
PHARMACY CALLED FOR MED CLARIFICATION
--- NOTE | 2016-12-20 19:49 | NUR ---
PAGER [phone] PAGED FOR LAB TIME CLARIFICATION
--- NOTE | 2016-12-20 20:41 | NUR ---
BEEPER [phone] PAGED AGAIN FOR MED CLARIFICATION
--- NOTE | 2016-12-20 21:23 | NUR ---
REPORT GIVEN TO BETHANY LAYTON
[2016-12-20 23:05] VITALS: BP 152/82
--- NOTE | 2016-12-21 07:14 | Cons- Urology ---
General Information and HPI Consulting Request Date of Consult: 12/21/16 Requested By: Jessica Montes MD,SHELL Wells Reason for Consult: R hydronephrosis and metastatic prostate ca Source of Information: old records Exam Limitations: no limitations History of Present Illness: This patient underwent radical prostatectomy by the [facility] in 2002. He then had post op RT and also had a penile prosthesis in placed. He did not have urologic f/u after this. He was seen in our office in 05/2016 with a PSA of 9.9. Bone scan was negative and CT showed some retroperitoneal adenopathy. He was started on casodex and given a 6 month Lupron injection on . He is due for his next injection the first week of December 2016. He was admitted to the hospital with weakness and difficulty ambulating which has gotten progressively worse. Labs are significant for hypercalcemia and CT scan shows significant retroperitoneal adenopathy causing mild to moderate R hydronephrosis, and bulky liver mets. He denies any R flank pain but admits to RUQ pain Allergies/Medications Allergies: Coded Allergies: No Known Allergies (12/20/16) Home Med List: Bicalutamide 50 MG TABLET 1 TAB PO DAILY UNKNOWN (Reported) Diclofenac Sodium (Voltaren) 1 % GEL..GRAM. 1 GM TOP AD PAIN/INFLAMMATION ( Reported) apply to affected area(s) Hydroxychloroquine Sulfate 200 MG TABLET 1 TAB PO BID UNKNOWN (Reported) Ibuprofen (Advil) 200 MG CAPSULE 1 CAP PO DAILY PAIN (Reported) Leuprolide Acetate (Lupron Depot) 45 MG (6 MONTH) SYRINGEKIT 45 MG IM Q6M UNKNOWN (Reported) Prednisone 5 MG TABLET 1 TAB PO BID STEROID (Reported) Current Medications: Current Medications Sig/Gagandeep Start time Last Medication Dose Route Stop Time Status Admin Acetaminophen 650 MG Q6P PRN 12/20 1800 AC PO Bicalutamide 50 MG DAILY 12/21 1000 AC PO Ceftriaxone Sodium 1,000 MG DAILY 12/21 1000 AC IV Ceftriaxone Sodium 0 .STK-MED ONE 12/20 1809 DC .ROUTE Ceftriaxone Sodium 1,000 MG ONCE ONE 12/20 1615 DC 12/20 IV 12/20 1616 1815 Heparin Sodium 5,000 UNIT Q8 12/20 2200 AC 12/21 (Porcine) SC 0558 Metronidazole 500 MG ONCE ONE 12/20 1615 DC 12/20 N/A 1 UNIT IV 12/20 1714 1820 Morphine Sulfate 2 MG Q6PRN PRN 12/20 1800 AC 12/21 IV 0602 Oxycodone HCl 10 MG Q6P PRN 12/20 1800 AC PO Pamidronate Disodium 60 MG ONE ONE 12/20 2000 DC 12/20 Sodium Chloride 1,000 ML IV 12/20 2359 2110 Polyethylene Glycol 17 GM DAILY 12/20 1800 AC PO Senna/Docusate Sodium 2 TAB DAILY PRN 12/20 1800 AC PO Sodium Chloride 1,000 ML .Q5H 12/20 1745 AC 12/21 IV 12/21 0844 0558 Sodium Chloride 1,000 ML BOLUS ONE 12/20 1415 DC 12/20 IV 12/20 1514 1523 Sodium Chloride 1,000 ML BOLUS ONE 12/20 1245 DC 12/20 IV 12/20 1344 1317 Past History Medical History Blood Transfusion Hx: No Other Medical Hx: Prostate cancer, malignancy, status post surgery 2002 which was unsuccessful, status post radiation treatment which was unsuccessful. Thyroid disorder, hyperlipidemia, gout, normocytic anemia, impotence, history of smoking, hypertension, rheumatoid arthritis, osteoarthritis, joint pain, urinary incontinence, occult blood in stool, erosive gastritis Surgical History Pertinent Surgical History: PROSTATECTOMY 2002 Psychosocial History Where Do You Live? Home Smoking Status: Former Smoker Exam & Diagnostic Data Vital Signs and I&O Vital Signs Date Time Temp Pulse Resp B/P Pulse O2 O2 Flow FiO2 Ox Delivery Rate 12/20 2305 98.0 98 18 152/82 96 Room Air 12/207 146/78 12/20 2019 97.5 101 16 175/81 97 Room Air 12/20 1815 99.5 102 16 170/80 97 Room Air 12/20 1348 97.9 104 18 167/79 100 Nasal 2.0L Cannula 12/20 1215 97 Room Air 12/20 1200 98.6 113 18 172/89 97 Room Air Intake & Output 12/21 0800 12/21 0000 12/20 1600 12/20 0812/20 0000 12/19 1600 Intake Total 1000 Output Total Balance 1000 Intake, IV 1000 Number 1 Bowel Movements Patient 185 lb Weight No acute distress semi alert. Back: no CVA tenderness Abd: soft. RUQ tenderness without rebound. Lower midline incision is well healed Genitalia: Penile prosthesis in place with pump in R hemiscrotum Laboratory Tests 12/20 1525 Chemistry Sodium (137 - 145 mmol/L) 142 Potassium (3.5 - 5.1 mmol/L) 4.8 Chloride (98 - 107 mmol/L) 107 Carbon Dioxide (22 - 30 mmol/L) 28 Anion Gap (5 - 16) 7 BUN (9 - 20 mg/dL) 37 H Creatinine (0.7 - 1.2 mg/dL) 1.1 Estimated GFR (>60 ml/min) > 60 BUN/Creatinine Ratio (7 - 25 %) 33.6 H Lactic Acid (0.7 - 2.1 mmol/L) 1.9 Calcium (8.4 - 10.2 mg/dL) 15.0 *H Urines Urine Color (YEL,AMB,STR) YEL Urine Clarity (CLEAR) CLEAR Urine pH (5.0 - 8.0) 6.0 Ur Specific [place] (1.001 - 1.035) 1.015 Urine Protein (NEG,<30 MG/DL) NEG Urine Ketones (NEG) NEG Urine Nitrite (NEG) NEG Urine Bilirubin (NEG) NEG Urine Urobilinogen (0.1 - 1.0 EU/dl) 0.2 Ur Leukocyte Esterase (NEG) NEG Ur Microscopic EXAM NOT REQUIRED Urine Hemoglobin (NEG) NEG Urine Glucose (N MG/DL) NEG 12/20 1245 Chemistry Sodium (137 - 145 mmol/L) 142 Potassium (3.5 - 5.1 mmol/L) 5.2 H Chloride (98 - 107 mmol/L) 101 Carbon Dioxide (22 - 30 mmol/L) 32 H Anion Gap (5 - 16) 9 BUN (9 - 20 mg/dL) 39 H Creatinine (0.7 - 1.2 mg/dL) 1.2 Estimated GFR (>60 ml/min) > 60 BUN/Creatinine Ratio (7 - 25 %) 32.5 H Glucose (65 - 99 mg/dL) 106 H Lactic Acid (0.7 - 2.1 mmol/L) 2.6 H Calcium (8.4 - 10.2 mg/dL) 17.2 *H Magnesium (1.6 - 2.3 mg/dL) 2.1 Total Bilirubin (0.2 - 1.3 mg/dL) 0.8 AST (17 - 59 U/L) 209 H ALT (21 - 72 U/L) 111 H Alkaline Phosphatase (< 127 U/L) 436 H Total Protein (6.3 - 8.2 g/dL) 8.3 H Albumin (3.5 - 5.0 g/dL) 3.6 Globulin (1.9 - 4.2 gm/dL) 4.7 H Albumin/Globulin Ratio (1.1 - 2.2 %) 0.8 L Amylase (30 - 110 U/L) 31 Lipase (23 - 300 U/L) 64 Total PSA (0.00 - 4.00 ng/mL) 1.53 Coagulation PT (9.4 - 12.5 SEC) 13.0 H INR (0.90 - 1.17) 1.24 H APTT (25 - 37 SEC) 35 Hematology CBC w Diff MAN DIFF ORDERED WBC (4.8 - 10.8 /CUMM) 18.4 H RBC (4.70 - 6.10 /CUMM) 4.81 Hgb (14.0 - 18.0 G/DL) 13.4 L Hct (42 - 52 %) 41.4 L MCV (80.0 - 94.0 FL) 86.0 MCH (27.0 - 31.0 PG) 27.8 RDW (11.5 - 14.5 %) 13.3 Plt Count (130 - 400 /CUMM) 302 MPV (7.4 - 10.4 FL) 9.3 Gran % (42.2 - 75.2 %) 85.3 H Lymphocytes % (20.5 - 51.1 %) 8.7 L Monocytes % (1.7 - 9.3 %) 5.8 Eosinophils % (0 - 5 %) 0.1 Basophils % (0.0 - 2.0 %) 0.1 Absolute Granulocytes (1.4 - 6.5 /CUMM) 15.7 H Absolute Lymphocytes (1.2 - 3.4 /CUMM) 1.6 Absolute Monocytes (0.10 - 0.60 /CUMM) 1.1 H Absolute Eosinophils (0.0 - 0.7 /CUMM) 0 Absolute Basophils (0.0 - 0.2 /CUMM) 0 Platelet Estimate (ADEQUATE) ADEQUATE Normocytic RBCs VERIFIED Normochromic RBCs VERIFIED PUBS MCHC (33.0 - 37.0 G/DL) 32.3 L Microbiology Date/Time Procedure - Status Source Growth 02/27 1537 Blood Culture - RECD BLOOD 12/20 1525 Blood Culture - RECD BLOOD Assessment/Plan Assessment/Plan Imp: 1. Metastatic prostate ca 2. Mild to moderate R hydronephrosis 3. Hypercalcemia Plan: 1. R hydronephrosis is not an urgent issue at this point as patient has no R flank pain and renal fxn is normal 2. Would get PSA and serum testosterone level 3. continue casodex (bicalutamide) 4. Will be due for Lupron injection in the next few days, anytime after 12/26/16 5. Oncology consult Consult Acknowledgment - Thank you for your consult request.
--- NOTE | 2016-12-21 07:25 | PN- Housestaff ---
See Addendum Subjective Follow-up For: -Hypercalcemia -Prostate cancer -Metastatic disease Subjective: Patient was seen and examined this morning, he was sleeping comfortably on bed, he he denied any pain while resting, reported abdominal pain mainly in the epigastric and right hypochondriac area upon movement. He denied any nausea, vomiting. His last bowel movement was last week. Patient also denied back pain. Patient has chronic history of urinary incontinence since 2008, denied any burning with urination or change in the color of the urine He denied fever, chills, chest pain, palpitation, shortness of breath. Vital signs are stable apart of the heart rate 102 this morning. No overnight events reported by the patient or the nurses. Review of Systems Constitutional: Reports: see HPI. Objective Last 24 Hrs of Vital Signs/I&O Vital Signs Date Time Temp Pulse Resp B/P Pulse O2 O2 Flow FiO2 Ox Delivery Rate 12/21 0752 97.8 102 20 154/70 96 Room Air 12/20 2305 98.0 98 18 152/82 96 Room Air 12/20 2117 146/78 12/20 2019 97.5 101 16 175/81 97 Room Air 12/20 1815 99.5 102 16 170/80 97 Room Air 12/20 1348 97.9 104 18 167/79 100 Nasal 2.0L Cannula 12/20 1215 97 Room Air 12/20 1200 98.6 113 18 172/89 97 Room Air Intake & Output 12/21 1600 12/21 0800 12/21 0000 Intake Total Output Total Balance Number 1 Bowel Movements Patient 83.915 kg Weight Physical Exam General Appearance: Alert, Oriented X3, Cooperative, No Acute Distress Skin: No Rashes, No Breakdown HEENT: Atraumatic, PERRLA, EOMI, Mucous Membr. moist/pink Neck: Supple, No JVD Cardiovascular: Regular Rate, Normal S1, Normal S2, No Murmurs Lungs: Clear to Auscultation, Normal Air Movement Abdomen: Normal Bowel Sounds, Soft, mild tenderness over the epigastric and right hypochodreal regions. Extremities: No Clubbing, No Cyanosis, No Edema, Normal Pulses, No Tenderness/ Swelling Assessment/Plan Assessment: This is a 71-year-old male with an extensive history of prostate cancer s/p prostatectomy 2002 and post op RT, currently following with Dr. Camilleriy, on bicalutamide and Lupron hormonal therapy, urinary incontinence since 200, patient presents on 12/20/16 to ED with chief complaint of generalized weakness that was ongoing for the last 3-4 month with progressive worsening over the past 2 weeks associated with right upper quadrant abdominal pain and constipation. CT of the abdomen and pelvis 12/20/16 IMPRESSION: 1. Extensive hepatic metastasis. 2. Osseous metastasis. Bone scan could be helpful for further assessment. 3. Retroperitoneal adenopathy. This is causing obstruction of the right kidney. 4. Low attenuating mass and spleen suspicious for metastasis. 5. Penile implant. 6. Status post prostatectomy. 7. 0.8 cm lung nodule right lower lobe. This is suspicious for metastasis. Consider CT chest for further evaluation. Problem list 1-hypercalcemia 2-metastatic disease/history of prostate cancer 3-acute kidney injury 4-hyperkalemia 5-lactic acidosis 6-constipation 7-rheumatoid arthritis #Hypercalcemia -Patient presented with calcium of 17.2, mostly malignancy related -Continue aggressive hydration IV fluid 200 mL per hour -Patient received 1 dose of IV pamidronate -Calcium measurement every 8, went down to 14 -Consider calcitonin if the calcium remains elevated -Hematology oncology is on board, thanks the recommendation #Metastatic disease -CT abdomen and pelvis on admission showed extensive hepatic metastasis with transaminitis and bone metastasis -Patient has history of prostate cancer status post prostatectomy and post op radiotherapy in 2002, he didn't follow with urologist after that however he started to see Dr. Dick May 2016 and was started on bicalutamide and Lupron hormonal therapy. The patient reported following up with oncologist at [facility] for one year after the procedure in 2002. -We'll obtain the records from [facility] -Hematology oncology and urology consultation with obtained, thanks recommendation -Patient presented with multiple metastasis without elevation of PSA, 1.53, was 9.9 in May 2016, patient could have new onset of prostate cancer of small cell type that has normal PSA level or has developed new primary malignant tumor -We will obtain CT chest and bone scan -On CT patient had right renal hydronephrosis due to obstruction of right ureter by retroperitoneal lymphadenopathy, per urology, there is no need for urgent stent placement. Possible future plan for right nephrostomy. -Continue Lupron injection, due for next injection is first week of December 2016 -Continue Casodex 50 mg daily by mouth #Leukocytosis - Today 17.2< 18.4 -Most likely hemoconcentration given findings of physical examination doesn't suggest dehydration and elevated BUN/creatinine ratio -Patient is receiving empirical coverage with ceftriaxone 100 mg IV given for presentarion of right hydronephrosis -Blood culture is pending -UA negative -Patient remained afebrile #Lactic acidosis -On presentation 2.6 start to trend down, today is 1.9 -Could be malignancy related superimposed by dehydration #Hyperkalemia -Resolved #Constipation -Patient presented with chronic history of constipation -Last bowel movement was last week -CT abdomen and pelvis on admission revealed diverticulosis of left colon sigmoid without diverticulitis. No acute change of the bowel. No bowel obstruction. No bowel wall thickening or edema. -Continue aggressive bowel regimen #Rheumatoid arthritis -Continue hydroxychloroquine 200 mg by mouth twice a day DVT prophylaxis heparin subcutaneous Diet regular diet Code full Consultation hematology oncology, urology Note: Patient's family wants meeting for goal of care that will be held most probably by tomorrow. Problem List: 1. Prostate CA 2. Metastatic disease 3. Hypercalcemia 4. Generalized weakness 5. Leukocytosis 6. Obstruction of kidney Pain Ratin Pain Location: Epigastric and right hypochondrial abdominal pain on movement Pain Goal: Pain 4 or less Pain Plan: Atenolol 650 every 6 when necessary Oxycodone again 10 mg every 6 when necessary Morphine 2 mg IV every 6 when necessary Tomorrow's Labs & Rationales: CBC, CMP, serum testosterone level
[2016-12-21 07:52] VITALS: BP 154/70
[2016-12-21 08:02] LABS: ABSOLUTE BASOPHIL COUNT 0 /CUMM (0.0-0.2); ABSOLUTE EOSINOPHIL COUNT 0.1 /CUMM (0.0-0.7); ABSOLUTE LYMPH COUNT 1.3 /CUMM (1.2-3.4); WHITE BLOOD CELL COUNT 17.2 /CUMM (4.8-10.8)
--- NOTE | 2016-12-21 08:20 | NUR ---
LATE ENTRY NURSING NOTE: PT ARRIVED TO FLOOR APPROX. 2200 VIA STRETCHER WITHOUT FAMILY AT BEDSIDE. PT AOX3, RA, INCONTINENT. NO OPEN AREAS OR WOUNDS ON SKIN. REDNESS TO BL BUTTOCKS AND INTERGLUTEAL CLEFT, BARRIER CREAM APPLIED. PT HAS REDNESS AND SLIGHT SWELLING TO RT SIDE OF FACE. PT STATED HE HAD THIS AT HOME AND IT LOOKS BETTER NOW THAN IT DID EARLIER TODAY. PLACED BED ALARM, ALPS, IVF. PT IS NPO, PROVIDED ORAL CARE AND LEFT AT BEDSIDE. PT HAD ONE SMALL BAG THAT INCLUDED HIS CELL PHONE, CONCRETER , AND THE EARPHONES THE HOSPITAL PROVIDES. PT ALSO HAD ONE SMALL BAG OF CLOTHING. ORIENTED PT TO CALL [facility], PLACED BED IN LOWEST POSITION. WILL CONTINUE TO MONITOR.
[2016-12-21 08:28] LABS: ABSOLUTE GRANULOCYTE CT 14.1 /CUMM (1.4-6.5); ABSOLUTE MONOCYTE COUNT 1.8 /CUMM (0.10-0.60); BASOPHIL % 0 % (0.0-2.0); EOSINOPHIL % 0.5 % (0-5); GRANULOCYTE % 81.7 % (42.2-75.2); MEAN CORPUSCULAR HGB CONC 32.5 G/DL (33.0-37.0); MEAN CORPUSCULAR VOLUME 86.2 FL (80.0-94.0); MEAN PLATELET VOLUME 10.6 FL (7.4-10.4); PLATELET COUNT 234 /CUMM (130-400); RBC DISTRIBUTION WIDTH 13.5 % (11.5-14.5); RED BLOOD CELL CT 4.07 /CUMM (4.70-6.10)
[2016-12-21 08:33] LABS: HEMATOCRIT 35.1 % (42-52)
--- NOTE | 2016-12-21 09:48 | PN- Student ---
HUSSEIN COLLINS 12/21/16 0921: Subjective Subjective: 71 y.o. male h/o prostatic cancer s/p prostectomy with post-op radiation therapy admitted with hypercalcemia and complaints of RUQ abdominal pain and generalized weakness. Today patient says he is feeling better but has abdominal pain when he coughs or breaths deeply. He has not been OOB. NPO for possible stent today for right hydronephrosis due to retroperitoneal adenopathy. Denies difficulties urinating, but is occasionally incontinent. He says he had a small BM yesterday and has had a small amount of flatus. No other complaints. He spoke with his yesterday who will be visiting him today. ROS: General: neg fever/chills Neuro: neg headache, visual changes Cardiac: neg chest pain, palpitations Lungs: neg SOB GI: pos abdominal pain, neg nausea/vomiting/diarrhea : neg dysuria, urgency, frequency MSK: neg back, neck, LE pain Objective Objective: General: resting in bed, very thin, in no acute distress HEENT: mucous membranes pink and moist, poor dentition Cardiac: S1 and S2 heard, RRR, no M/R/G Lungs: CTA bilaterally, no W/R/R Abdomen: distended, soft, diffuse tenderness to light palpation, most severe in RUQ MSK: athrombics in place on LEs, mild LE edema, calves soft and nontender to palpation, pedal pulses 1+ bilaterally Psych: awake and alert, cooperative and appropraite Results Results: Laboratory Tests 12/21/16 0650: Anion Gap 9, Estimated GFR 55 L, BUN/Creatinine Ratio 28.5 H, Calcium 14.9 *H, Phosphorus 3.9, Magnesium 1.9, CBC w Diff NO MAN DIFF REQ, RBC 4.07 L, MCV 86.2 , MCH 28.0, RDW 13.5, MPV 10.6 H, Gran % 81.7 H, Lymphocytes % 7.4 L, Monocytes % 10.4 H, Eosinophils % 0.5, Basophils % 0 L, Absolute Granulocytes 14.1 H, Absolute Lymphocytes 1.3, Absolute Monocytes 1.8 H, Absolute Eosinophils 0.1, Absolute Basophils 0, PUBS MCHC 32.5 L 12/20/16 0877: Urine Color YEL, Urine Clarity CLEAR, Urine pH 6.0, Ur Specific [place] 1.015, Urine Protein NEG, Urine Ketones NEG, Urine Nitrite NEG, Urine Bilirubin NEG, Urine Urobilinogen 0.2, Ur Leukocyte Esterase NEG, Ur Microscopic EXAM NOT REQUIRED, Urine Hemoglobin NEG, Urine Glucose NEG 12/20/162052: Anion Gap 7, Estimated GFR > 60, BUN/Creatinine Ratio 33.6 H, Calcium 15.0 *H 12/20/16 1525: Lactic Acid 1.9 12/20/16 1245: Anion Gap 9, Estimated GFR > 60, BUN/Creatinine Ratio 32.5 H, Glucose 106 H, Lactic Acid 2.6 H, Calcium 17.2 *H, Magnesium 2.1, Total Bilirubin 0.8, AST 209 H, ALT 111 H, Alkaline Phosphatase 436 H, Total Protein 8.3 H, Albumin 3.6, Globulin 4.7 H, Albumin/Globulin Ratio 0.8 L, Amylase 31, Lipase 64, Total PSA 1.53, PT 13.0 H, INR 1.24 H, APTT 35, CBC w Diff MAN DIFF ORDERED, RBC 4.81, MCV 86.0, MCH 27.8, RDW 13.3, MPV 9.3, Gran % 85.3 H, Lymphocytes % 8.7 L, Monocytes % 5.8, Eosinophils % 0.1, Basophils % 0.1, Absolute Granulocytes 15.7 H, Absolute Lymphocytes 1.6, Absolute Monocytes 1.1 H, Absolute Eosinophils 0, Absolute Basophils 0, Platelet Estimate ADEQUATE, Normocytic RBCs VERIFIED, Normochromic RBCs VERIFIED, PUBS MCHC 32.3 L Microbiology 12/20 1537 BLOOD: Blood Culture - RECD 12/20 1524 BLOOD: Blood Culture - RECD Assessment/Plan Assessment: 71 y.o. male h/o prostatic cancer s/p prostectomy with post-op radiation therapy with metastasis to liver, spine, and possibly spleen and lung; hypercalcemia; and right hydronephrosis due to retroperitoneal adenopathy. Hypercalcemia has improved with hydration and IV pamidronate. Oncology is involved with respect to metastatic prostate cancer. Urology involved with respect to hydronephrosis and metastatic cancer. Plan: 1. Hypercalcemia: - hydration with normal saline - IV pamidronate - serum calcium levels q 8 hrs 2. Right hydronephrosis: - follow urology recomendations - stent procedure versus conservative management - currently NPO for possible stent procedure 3. Metastasis: - follow oncology and urology recomendations - continue casodex and Lupron injections (next due after 12/26/16) - pain control
--- NOTE | 2016-12-21 10:17 | Cons- Oncology ---
General Information and HPI Consulting Request Date of Consult: 12/21/16 Requested By: SHELL JACOBSON MD Reason for Consult: Metastatic prostate cancer Source of Information: patient, old records Exam Limitations: clinical condition History of Present Illness: Mr. Chauhan is a 71-year-old male with metastatic prostate cancer who presents with diffuse pain and abdominal pain. Per records, he has radiacal prostatectomy in [place] in 2002 with post-operative RT. He was seen by Dr. Azevedo's office in May 2016 with elevated PSA of 9.9. Bone scan and CT scan demonstrated retroperitoneal adenopathy. He was started on Lupron every 6 months with Casodex with first dose on 06/24/2016. He was due for one in December 2016. He presented with weakness, diffuse bone pain, and abdominal pain. In the ED, he was noted to have hypercalcemia up to 17.2. He was started on IVF and was given pamidronate 60 mg once. He was noted to have elevated liver enzymes. CT scan of the abomen was noted have extensive hepatic metastasis, osseous metastasis, retroperitoneal adenopathy, obstruction of the right kidney, low attenuating mass in the spleen, and 0.8 cm lung nodule right lower lobe. His PSA was check and was 1.5. Allergies/Medications Allergies: Coded Allergies: No Known Allergies (12/20/16) Home Med List: Bicalutamide 50 MG TABLET 1 TAB PO DAILY UNKNOWN (Reported) Diclofenac Sodium (Voltaren) 1 % GEL..GRAM. 1 GM TOP AD PAIN/INFLAMMATION ( Reported) apply to affected area(s) Hydroxychloroquine Sulfate 200 MG TABLET 1 TAB PO BID UNKNOWN (Reported) Ibuprofen (Advil) 200 MG CAPSULE 1 CAP PO DAILY PAIN (Reported) Leuprolide Acetate (Lupron Depot) 45 MG (6 MONTH) SYRINGEKIT 45 MG IM Q6M UNKNOWN (Reported) Prednisone 5 MG TABLET 1 TAB PO BID STEROID (Reported) Current Medications: Current Medications Sig/Gagandeep Start time Last Medication Dose Route Stop Time Status Admin Acetaminophen 650 MG Q6P PRN 12/20 1800 AC PO Bicalutamide 50 MG DAILY 12/21 1000 AC PO Ceftriaxone Sodium 1,000 MG DAILY 12/21 1000 AC IV Ceftriaxone Sodium 0 .STK-MED ONE 12/20 1809 DC .ROUTE Ceftriaxone Sodium 1,000 MG ONCE ONE 12/20 1615 DC 12/20 IV 12/20 1616 1815 Heparin Sodium 5,000 UNIT Q8 12/20 2200 AC 12/21 (Porcine) SC 0558 Hydroxychloroquine 200 MG BID 12/21 1000 AC Sulfate PO Metronidazole 500 MG ONCE ONE 12/20 1615 DC 12/20 N/A 1 UNIT IV 12/20 1714 1820 Morphine Sulfate 2 MG Q6PRN PRN 12/20 1800 AC 12/21 IV 0602 Non-Formulary 0 SEE ADMIN CRITERIA 12/27 0900 DC Medication ANY Oxycodone HCl 10 MG Q6P PRN 12/20 1800 AC PO Pamidronate Disodium 60 MG ONE ONE 12/20 2000 DC 12/20 Sodium Chloride 1,000 ML IV 12/20 2359 2110 Polyethylene Glycol 17 GM DAILY 12/20 1800 AC PO Senna/Docusate Sodium 2 TAB DAILY PRN 12/20 1800 AC PO Sodium Chloride 1,000 ML .Q5H 12/20 1745 DC 12/21 IV 12/21 0844 0558 Sodium Chloride 1,000 ML BOLUS ONE 12/20 1415 DC 12/20 IV 12/20 1514 1523 Sodium Chloride 1,000 ML BOLUS ONE 12/20 1245 DC 12/20 IV 12/20 1344 1317 Review of Systems Review of Systems Constitutional: Reports: malaise, weakness. Denies: chills, fever. EENTM: Denies: double vision. Cardiovascular: Denies: chest pain. Respiratory: Denies: short of breath. GI: Reports: abdominal pain, bloating. Denies: melena. Genitourinary: Denies: dysuria, hematuria. Musculoskeletal: Reports: back pain, joint pain, muscle pain. Neurological/Psychological: Reports: confusion. Hematologic/Endocrine: Denies: bruising, bleeding. Immunologic/Allergic: Denies: lymphadenopathy. All Other Systems: Reviewed and Negative Past History Travel History Traveled to [place] past 21 day No Medical History Blood Transfusion Hx: No Other Medical Hx: Prostate cancer, malignancy, status post surgery 2002 which was unsuccessful, status post radiation treatment which was unsuccessful. Thyroid disorder, hyperlipidemia, gout, normocytic anemia, impotence, history of smoking, hypertension, rheumatoid arthritis, osteoarthritis, joint pain, urinary incontinence, occult blood in stool, erosive gastritis Surgical History Surgical History: PROSTATECTOMY 2002 Psychosocial History Where Do You Live? Home Smoking Status: Former Smoker Exam & Diagnostic Data Vital Signs and I&O Vital Signs Date Time Temp Pulse Resp B/P Pulse O2 O2 Flow FiO2 Ox Delivery Rate 12/21 0752 97.8 102 20 154/70 96 Room Air 12/20 2305 98.0 98 18 152/82 96 Room Air 12/20 2117 146/78 12/20 2019 97.5 101 16 175/81 97 Room Air 12/20 1815 99.5 102 16 170/80 97 Room Air 12/20 1348 97.9 104 18 167/79 100 Nasal 2.0L Cannula 12/20 1215 97 Room Air 12/20 1200 98.6 113 18 172/89 97 Room Air Intake & Output 12/21 1600 12/21 0800 12/21 0000 Intake Total Output Total Balance Number 1 Bowel Movements Patient 83.915 kg Weight Physical Exam General Appearance: alert, awake, mild distress Head: atraumatic, normal appearance Eyes: Bilateral: PERRL. Ears, Nose, Throat: normal pharynx Neck: normal inspection Respiratory: normal breath sounds, chest non-tender, no respiratory distress, quiet respiration Cardiovascular: tachycardia Gastrointestinal: normal bowel sounds, soft, tenderness Extremities: no edema Neurologic/Psych: awake, alert, confused at times Lymphatic: no anterior cervical sami Last 48 Hours of Lab Results: Laboratory Tests 12/21 12/20 0650 2107 Chemistry Sodium (137 - 145 mmol/L) 144 Potassium (3.5 - 5.1 mmol/L) 4.1 Chloride (98 - 107 mmol/L) 112 H Carbon Dioxide (22 - 30 mmol/L) 22 Anion Gap (5 - 16) 9 BUN (9 - 20 mg/dL) 37 H Creatinine (0.7 - 1.2 mg/dL) 1.3 H Estimated GFR (>60 ml/min) 55 L BUN/Creatinine Ratio (7 - 25 %) 28.5 H Calcium (8.4 - 10.2 mg/dL) 14.9 *H Phosphorus (2.5 - 4.5 mg/dL) 3.9 Magnesium (1.6 - 2.3 mg/dL) 1.9 Hematology CBC w Diff NO MAN DIFF REQ WBC (4.8 - 10.8 /CUMM) 17.2 H RBC (4.70 - 6.10 /CUMM) 4.07 L Hgb (14.0 - 18.0 G/DL) 11.4 L Hct (42 - 52 %) 35.1 L MCV (80.0 - 94.0 FL) 86.2 MCH (27.0 - 31.0 PG) 28.0 RDW (11.5 - 14.5 %) 13.5 Plt Count (130 - 400 /CUMM) 234 MPV (7.4 - 10.4 FL) 10.6 H Gran % (42.2 - 75.2 %) 81.7 H Lymphocytes % (20.5 - 51.1 %) 7.4 L Monocytes % (1.7 - 9.3 %) 10.4 H Eosinophils % (0 - 5 %) 0.5 Basophils % (0.0 - 2.0 %) 0 L Absolute Granulocytes (1.4 - 6.5 /CUMM) 14.1 H Absolute Lymphocytes (1.2 - 3.4 /CUMM) 1.3 Absolute Monocytes (0.10 - 0.60 /CUMM) 1.8 H Absolute Eosinophils (0.0 - 0.7 /CUMM) 0.1 Absolute Basophils (0.0 - 0.2 /CUMM) 0 PUBS MCHC (33.0 - 37.0 G/DL) 32.5 L Urines Urine Color (YEL,AMB,STR) YEL Urine Clarity (CLEAR) CLEAR Urine pH (5.0 - 8.0) 6.0 Ur Specific Stuart (1.001 - 1.035) 1.015 Urine Protein (NEG,<30 MG/DL) NEG Urine Ketones (NEG) NEG Urine Nitrite (NEG) NEG Urine Bilirubin (NEG) NEG Urine Urobilinogen (0.1 - 1.0 EU/dl) 0.2 Ur Leukocyte Esterase (NEG) NEG Ur Microscopic EXAM NOT REQUIRED Urine Hemoglobin (NEG) NEG Urine Glucose (N MG/DL) NEG 12/20 12/20 12/20 2053 1525 1245 Chemistry Sodium (137 - 145 mmol/L) 142 142 Potassium (3.5 - 5.1 mmol/L) 4.8 5.2 H Chloride (98 - 107 mmol/L) 107 101 Carbon Dioxide (22 - 30 mmol/L) 28 32 H Anion Gap (5 - 16) 7 9 BUN (9 - 20 mg/dL) 37 H 39 H Creatinine (0.7 - 1.2 mg/dL) 1.1 1.2 Estimated GFR (>60 ml/min) > 60 > 60 BUN/Creatinine Ratio (7 - 25 %) 33.6 H 32.5 H Glucose (65 - 99 mg/dL) 106 H Lactic Acid (0.7 - 2.1 mmol/L) 1.9 2.6 H Calcium (8.4 - 10.2 mg/dL) 15.0 *H 17.2 *H Magnesium (1.6 - 2.3 mg/dL) 2.1 Total Bilirubin (0.2 - 1.3 mg/dL) 0.8 AST (17 - 59 U/L) 209 H ALT (21 - 72 U/L) 111 H Alkaline Phosphatase (< 127 U/L) 436 H Total Protein (6.3 - 8.2 g/dL) 8.3 H Albumin (3.5 - 5.0 g/dL) 3.6 Globulin (1.9 - 4.2 gm/dL) 4.7 H Albumin/Globulin Ratio (1.1 - 2.2 %) 0.8 L Amylase (30 - 110 U/L) 31 Lipase (23 - 300 U/L) 64 Total PSA (0.00 - 4.00 ng/mL) 1.53 Coagulation PT (9.4 - 12.5 SEC) 13.0 H INR (0.90 - 1.17) 1.24 H APTT (25 - 37 SEC) 35 Hematology CBC w Diff MAN DIFF ORDERED WBC (4.8 - 10.8 /CUMM) 18.4 H RBC (4.70 - 6.10 /CUMM) 4.81 Hgb (14.0 - 18.0 G/DL) 13.4 L Hct (42 - 52 %) 41.4 L MCV (80.0 - 94.0 FL) 86.0 MCH (27.0 - 31.0 PG) 27.8 RDW (11.5 - 14.5 %) 13.3 Plt Count (130 - 400 /CUMM) 302 MPV (7.4 - 10.4 FL) 9.3 Gran % (42.2 - 75.2 %) 85.3 H Lymphocytes % (20.5 - 51.1 %) 8.7 L Monocytes % (1.7 - 9.3 %) 5.8 Eosinophils % (0 - 5 %) 0.1 Basophils % (0.0 - 2.0 %) 0.1 Absolute Granulocytes (1.4 - 6.5 /CUMM) 15.7 H Absolute Lymphocytes (1.2 - 3.4 /CUMM) 1.6 Absolute Monocytes (0.10 - 0.60 /CUMM) 1.1 H Absolute Eosinophils (0.0 - 0.7 /CUMM) 0 Absolute Basophils (0.0 - 0.2 /CUMM) 0 Platelet Estimate (ADEQUATE) ADEQUATE Normocytic RBCs VERIFIED Normochromic RBCs VERIFIED PUBS MCHC (33.0 - 37.0 G/DL) 32.3 L Imaging/Other Studies: CT abdomen/pelvis 12/20/2016: 1. Extensive hepatic metastasis. 2. Osseous metastasis. Bone scan could be helpful for further assessment. 3. Retroperitoneal adenopathy. This is causing obstruction of the right kidney. 4. Low attenuating mass and spleen suspicious for metastasis. 5. Penile implant. 6. Status post prostatectomy. 7. 0.8 cm lung nodule right lower lobe. This is suspicious for metastasis. CXR 12/20/2016: Cardiac leads overlie the chest. The lungs are well expanded. There is no focal consolidation, edema, or effusion. No pneumothorax. The cardiomediastinal silhouette is within normal limits. No acute osseous abnormality. Assessment/Plan Assessment: Mr. Chauhan is a 71-year-old male with recently diagnosed metastatic prostate cancer on Lupron and Casodex who presents with new weakness, diffuse pain, and abdominal pain. He was diagnosed with prostate cancer in 2002 and underwent radical prostatectomy with postoperative RT. He was found to have elevated PSA of 9.9 in 05/2016. Scan demonstrated no bone disease but does not RP adenopathy. He was started on Lupron/Casodex in 06/2016. He presents now with hypercalcemia with calcium of 17.2, leukocytosis, numerous metastatic disease in lymph nodes, bone, liver, spleen, and potentially small lung lesion. This is concerning for prostate cancer. It is supprising that his PSA is normal at 1.5. This make it less likely that it is true prostate cancer. Given that he is also 14 years out from his original diagnosis, a secondary primary must be entertained. Small cell variant should also be considered. His disease progress quickly over 6 months from last scan in May 2016. He should be investigated for a second primary. Bone scan and CT scan of the chest should be done. Biopsy of the liver mass should also be done to make a tissue diagnosis. For his hypercalcemia, he has received pamidronate already. He is on IVF. Calcitonin can be used to help improve the hypercalcemia. This may help with his mental status. Urology is following for the hydronephrosis with possible stent placement. Recommendations: 1. Obtain bone scan 2. Obtain CT scan of chest 3. Obtain liver biopsy 4. Continue IVF 5. Consider calcitonin given continued elevation of calcium Problem List: 1. Transaminitis 2. Leukocytosis 3. SIRS (systemic inflammatory response syndrome) 4. Hypercalcemia 5. Metastatic disease 6. Prostate CA 7. Generalized weakness Other Findings/Comments: Please call [phone] with any questions or concerns. Consult Acknowledgment - Thank you for your consult request.
--- NOTE | 2016-12-21 12:00 | NUR ---
NURSING NOTE: NUCLEAR MEDICINE NURSE CAME TO FLOOR AND GAVE PATIENT RADIOACTIVE ISOTOPE MEDICATION FOR BONE SCAN TO BE DONE AT 3PM. ALL STAFF NOTIFIED TO DOUBLE GLOVE WITH PPE FOR INCONTINENCE CARE [id number].
--- NOTE | 2016-12-21 14:23 | NUR ---
NURSING NOTE: PATIENT A/OX3, DENIES PAIN AT THIS TIME. INCONTINENCE CARE PROVIDED. PATIENT LEFT FLOOR VIA STRETCHER WITH DISTRIBUTION FOR NUCLEAR MEDICINE BONE SCAN AND CT SCAN. WILL AWAIT RETURN.
--- NOTE | 2016-12-21 17:17 | NUR ---
NURSING NOTE: PATIENT RETURNED TO FLOOR VIA STRETCHER WITH DISTRIBUTION FROM NUCLEAR MEDICINE AND CT SCAN. PATIENT A/OX3, STILL DENIES PAIN AT THIS TIME. PATIENT SWITCHED OVER TO SIZEWISE MATTRESS. PATIENT STATES HE DOES NOT WANT ANY DINNER. ENCOURAGED TO AT LEAST DRINK FLUIDS AT THIS TIME. WILL CONTINUE TO MONITOR.
--- NOTE | 2016-12-21 17:26 | NUCLEAR MEDICINE REPORT ---
EXAMINATION: NM BONE SCAN WHOLE BODY CLINICAL INFORMATION: 71-year-old male status post radical prostatectomy found to have multifocal osteolytic lesions involving the thoracolumbar spine on CT scan of the abdomen and pelvis (done on 12/20/2016), thought to be suspicious for metastatic disease. For follow-up. The liver also showed changes consistent with extensive metastases. COMPARISON: Whole-body bone scan done on 05/28/2016. CT of the abdomen and pelvis done on 12/20/2016. TECHNIQUE: Multiple gamma scintillation camera images of the whole body were performed 3 hours following the intravenous administration of 25.2 mCi Tc-99m HDP. The radiotracer was injected through right forearm superficial vein. FINDINGS: In the head, no suspicious focal abnormal radiotracer activity is present. In the thoracic cage and upper extremities, no suspicious abnormal increased activity is present. In the spine, corresponding to suspicious multifocal lytic lesion seen involving the prior CT of the abdomen and pelvis within the thoracolumbar spine, there is no concordant abnormal discrete focal activities identified on the planar images. Follow-up MRI of the thoracolumbar spine may be considered for further full detail evaluation, more sensitive study, if clinically appropriate. In the pelvis, no discrete abnormal focal increased radiotracer activity suggestive of metastases visualized. In the lower extremities, no discrete focal abnormal increased activity is a stable metastasis is seen. Heterogeneous intense patchy abnormal uptake is noted throughout the entire liver,, when correlating with prior CT of the abdomen, the finding is highly consistent with metastatic disease. Image guided biopsy of the liver may be considered for definitive tissue diagnosis, if clinically appropriate. The urinary bladder and faint visualization of both kidneys are noted. There is a Meyers's catheter and collecting bag visualized. IMPRESSION: 1. The liver shows heterogeneous abnormal increased radiotracer activity, when correlating with prior CT study, the finding is highly concerning for metastatic disease. Image guided biopsy of the liver may be considered for definitive tissue diagnosis, if clinically appropriate. 2. There is no concordant abnormal radiotracer activity identified corresponding to previous CT detected multifocal lytic abnormality seen involving the thoracolumbar spine. This may be related to technical limitation of the planar imaging. Follow-up MRI of the entire spine with and without contrast may be considered for further full detail evaluation, if clinically appropriate. 3. Specifically, except for interval development of heterogeneous abnormal activity within the liver, no other significant interval change is present within the entire axial, appendicular skeleton since the prior study dated 05/28/2016.
--- NOTE | 2016-12-21 17:29 | CT SCAN REPORT ---
EXAMINATION: CT CHEST WITHOUT CONTRAST CLINICAL INFORMATION: Metastatic cancer from prostate. COMPARISON: CT abdomen and pelvis dated 05/28/[address] abdomen and pelvis dated 12/20/2016. TECHNIQUE: Multidetector volumetric CT imaging of the chest was done. Axial MIP volume rendering provided. Sagittal and coronal reformatted images were obtained. DLP: 206.9 mGy-cm FINDINGS: CAR SUPPLIER: Unremarkable LUNGS: Multiple discrete noncalcified pulmonary nodules are present. Panel Assembler nodules are listed below with measurements made on series 2 (58 images). Additional smaller nodules are present. 1. Right upper lobe, suprahilar, 1.1 cm, image 20 2. Right upper lobe, lateral, 0.4 cm, image 22 3. Right middle lobe, posterolateral, juxtapleural, 0.9 cm, image 33 4. Left upper lobe, posterolateral, juxtapleural, 0.9 cm, image 27 Ill-defined, patchy foci of nodular airspace disease are present in the inferior aspect of the posterior segment of the right upper lobe near the confluence of the major and minor fissures, potentially due to pneumonia or aspiration. Additional patchy, ill-defined foci of consolidation are present in the posterior aspect of the right lower lobe with adjacent atelectasis. Central airways are clear. MEDIASTINUM: Heart is normal in size. Trace pericardial fluid, within normal limits. Punctate calcifications are present in the mitral and aortic valves. Precarinal fluid on image 23/58 of series 2 should not be mistaken for a lymph node. No pathologically enlarged upper or central mediastinal lymph nodes are identified. No hilar adenopathy. There is a enlarged (1 cm short axis) lymph node at the right lateral margin of the esophagus at the diaphragmatic hiatus. A 0.9 cm lymph node is present in the anterior epiphrenic fat pad to the right of midline. PLEURA: There is no pleural effusion. No pleural mass or thickening. AXILLA: No lymphadenopathy. UPPER ABDOMEN: Metastatic disease in the liver is better seen on the recent CT abdomen and pelvis. Imaged portion of the upper abdomen is otherwise unremarkable. OSSEOUS STRUCTURES: Ill-defined areas of lucency are present within the anterior aspect of the T4 vertebral body (image 60/121 of series 602) and the posterior inferior aspect of the T6 vertebral body with subtle cortical erosion, concerning for lytic osseous lesions. These measure roughly 1.6 x 1.2 x 0.9 cm and 1.8 x 1.5 x 1.4 cm, respectively. Additional lytic lesions are present in the T10, T11, and T12 vertebral bodies. There is a 1.2 cm lytic lesion within the left 6th rib and a small lytic lesion in the left posterolateral 5th rib. Multiple smaller lesions are likely present. IMPRESSION: 1. Multiple pulmonary nodules measuring up to 1.1 cm, most compatible with metastatic disease. 2. Multiple lytic osseous metastatic foci within the thoracic spine and ribs. No pathologic fractures are identified. 3. Patchy, ill-defined nodular foci of airspace disease in the right upper and right lower lobes, potentially due to superimposed aspiration or pneumonia. 4. Hepatic metastatic disease, better seen on the prior CT abdomen pelvis. 5. Borderline enlarged paraesophageal lymph node at the diaphragmatic hiatus.
--- NOTE | 2016-12-21 18:00 | NUR ---
NURSING NOTE: PATIENT HAD LAB WORK TO BE DRAWN AT 1500. PATIENT OFF THE FLOOR AT TIME. PATIENT RETURNED AT 1717. THIS NURSE NOTICED AT THIS TIME THAT LAB WORK HAD STILL NOT BEEN DRAWN YET. LAB WORK PLACED, NOT URGENT OR STAT. MST NOTIFIED TO DRAW LAB WORK. AT THIS TIME THERE IS ONLY ONE MST ON THE FLOOR. MST WILL DRAW LAB WORK WHEN AVAILABLE.
--- NOTE | 2016-12-22 00:44 | NUR ---
BP 164/80, HR 100. PT ASYMPTOMATIC. SENT TEXT PAGE ADVISING LIBRARY PAGE. WILL CONTINUE TO MONITOR.
[2016-12-22 00:46] VITALS: BP 164/80
--- NOTE | 2016-12-22 02:42 | NUR ---
BP 170/90, HR 106. SENT PAGE TO TECH ED/[employer] BUSINESS ADMINISTRATION TEACHER. WILL CONTINUE TO MONITOR.
--- NOTE | 2016-12-22 07:13 | PN- Housestaff ---
See Addendum Subjective Follow-up For: -Hypercalcemia -Prostate cancer -Metastatic disease Subjective: Patient was seen and examined this morning, he endorses feeling "better". He has complained of epigastric and right hypochondrial abdominal pain that is on and off upon movement, the pain can be as severe as 9-10 out of 10 on pain scale , he denied any history of nausea or vomiting, no bowel movement yet. Patient is incontinent, will try to use the urinal today, he thinks he can do so. He denied any headache, visual changes, auditory changes, dizziness, shortness of breath, cough, chest pain, palpitation. Overnight events is tachycardia heart rate of 102, rest of vital signs are stable, patient was asymptomatic. Review of Systems Constitutional: Reports: see HPI. Objective Last 24 Hrs of Vital Signs/I&O Vital Signs Date Time Temp Pulse Resp B/P Pulse O2 O2 Flow FiO2 Ox Delivery Rate 12/22 0753 97.5 100 20 160/84 95 Room Air 12/22 0046 98.0 100 20 164/80 95 Room Air Intake & Output 12/22 1600 12/22 0800 12/22 0000 Intake Total 100 50 Output Total Balance 100 50 Intake, Oral 100 50 Number 1 Bowel Movements Physical Exam General Appearance: Cooperative, No Acute Distress, confused Skin: No Rashes, No Breakdown, No Significant Lesion HEENT: Atraumatic, PERRLA, EOMI, Mucous Membr. moist/pink Neck: Supple Cardiovascular: Regular Rate, Normal S1, Normal S2, No Murmurs Lungs: Clear to Auscultation, decrease air entery bilateral Abdomen: Normal Bowel Sounds, Soft, No Tenderness, hepatomegaly Neurological: Normal Speech, Strength at 5/5 X4 Ext, Normal Tone, Sensation Intact, Cranial Nerves 3-12 NL, Reflexes 2+ Extremities: No Clubbing, No Cyanosis, Normal Pulses, left LE trace pedal edema Assessment/Plan Assessment: This is a 71-year-old male with an extensive history of prostate cancer s/p prostatectomy 2002 and post op RT, currently following with Dr. Cartwright, on bicalutamide and Lupron hormonal therapy, urinary incontinence since 200, patient presents on 12/20/16 to ED with chief complaint of generalized weakness that was ongoing for the last 3-4 month with progressive worsening over the past 2 weeks associated with right upper quadrant abdominal pain and constipation. On admission CT of the abdomen and pelvis 12/20/16 IMPRESSION: 1. Extensive hepatic metastasis. 2. Osseous metastasis. Bone scan could be helpful for further assessment. 3. Retroperitoneal adenopathy. This is causing obstruction of the right kidney. 4. Low attenuating mass and spleen suspicious for metastasis. 5. Penile implant. 6. Status post prostatectomy. 7. 0.8 cm lung nodule right lower lobe. This is suspicious for metastasis. Consider CT chest for further evaluation. CT chest 12/21/16 IMPRESSION: 1. Multiple pulmonary nodules measuring up to 1.1 cm, most compatible with metastatic disease. . Right upper lobe, suprahilar, 1.1 cm, image 20 . Right upper lobe, lateral, 0.4 cm, image 22 . Right middle lobe, posterolateral, juxtapleural, 0.9 cm, image 33 . Left upper lobe, posterolateral, juxtapleural, 0.9 cm, image 27 2. Multiple lytic osseous metastatic foci within the thoracic spine and ribs. No pathologic fractures are identified. 3. Patchy, ill-defined nodular foci of airspace disease in the right upper and right lower lobes, potentially due to superimposed aspiration or pneumonia. 4. Hepatic metastatic disease, better seen on the prior CT abdomen pelvis. 5. Borderline enlarged paraesophageal lymph node at the diaphragmatic hiatus. Bone scan 12/21/69 IMPRESSION: 1. The liver shows heterogeneous abnormal increased radiotracer activity, when correlating with prior CT study, the finding is highly concerning for metastatic disease. Image guided biopsy of the liver may be considered for definitive tissue diagnosis, if clinically appropriate. 2. There is no concordant abnormal radiotracer activity identified corresponding to previous CT detected multifocal lytic abnormality seen involving the thoracolumbar spine. This may be related to technical limitation of the planar imaging. Follow-up MRI of the entire spine with and without contrast may be considered for further full detail evaluation, if clinically appropriate. 3. Specifically, except for interval development of heterogeneous abnormal activity within the liver, no other significant interval change is present within the entire axial, appendicular skeleton since the prior study dated 05/28/2016. Problem list 1-hypercalcemia 2-metastatic disease/history of prostate cancer 3-acute kidney injury 4-hyperkalemia 5-lactic acidosis 6-constipation 7-rheumatoid arthritis #Hypercalcemia -Patient presented with calcium of 17.2, mostly malignancy related -Patient received aggressive hydration IV fluid 200 mL per hour yesterday, will switch to D5 half-normal saline 100 mg/h continuous infusion -Patient received 1 dose of IV pamidronate on 12/20 finished the dose at 12 AM -Calcium is continue to be at the plateau level of 14.9 -Calcitonin 340 units every 12 IM will be given today -Calcium measurement every 8 -Hematology oncology is on board, thanks the recommendation #Metastatic disease -Patient has history of prostate cancer status post prostatectomy and post op radiotherapy in 2002, he didn't follow with urologist after that however he started to see Dr. Dick May 2016 and was started on bicalutamide and Lupron hormonal therapy. The patient reported following up with oncologist at [facility] for one year after the procedure in 2002. -We reached out to [facility] for old records, unfortunately it has been more than 10 year since the procedure and all of the records were destroyed -CT abdomen and pelvis on admission showed extensive hepatic metastasis with transaminitis and bone metastasis -CT chest revealed metastatic lung cancer and bone lesion of thoracic spine and ribs -Bone scan revealed osteolytic regions, no bone uptake of radioactive agent -Hematology oncology and urology consultation were with obtained, thanks for recommendations -Patient presented with multiple metastasis without elevation of PSA, 1.53, was 9.9 in May 2016, patient could have new onset of prostate cancer of small cell type that has normal PSA level or has developed new primary malignant tumor -Consider obtaining CT head and liver biopsy, will wait for the family meeting this afternoon and will proceed as needed -On CT patient had right renal hydronephrosis due to obstruction of right ureter by retroperitoneal lymphadenopathy, per urology, there is no need for urgent stent placement. Possible future plan for right nephrostomy. -Continue Lupron injection, due for next injection is first week of December 2016 -Continue Casodex 50 mg daily by mouth #Leukocytosis - Today 16.7 <17.2< 18.4 -Most likely hemoconcentration given findings of physical examination doesn't suggest dehydration and elevated BUN/creatinine ratio -Patient is receiving empirical coverage with ceftriaxone 100 mg IV given for presentarion of right hydronephrosis -Blood culture is pending -UA negative -Patient remained afebrile #Lactic acidosis -On presentation 2.6 start to trend down, today is 1.9 -Could be malignancy related superimposed by dehydration #Hyperkalemia -Resolved #Constipation -Patient presented with chronic history of constipation -Last bowel movement was last week, small bowel movement with flatus after [place] exam on ED -CT abdomen and pelvis on admission revealed diverticulosis of left colon sigmoid without diverticulitis. No acute change of the bowel. No bowel obstruction. No bowel wall thickening or edema. -Continue aggressive bowel regimen #Rheumatoid arthritis -Continue hydroxychloroquine 200 mg by mouth twice a day DVT prophylaxis heparin subcutaneous Diet patient failed swallowing evaluation, he couldn't initiate swallowing, nothing by mouth for now Code DNR/DNI, patient will have hospice evaluation today Consultation hematology oncology, urology Note: We had a meeting with patient's Mrs. Zuniga will also his power of assistant county attorney, patient has no wishes for any aggressive intervention, would hold for CT head and liver biopsy, also they want hospice evaluation and the CODE STATUS was changed to DNR/DNI. Problem List: 1. Prostate CA 2. Metastatic disease 3. Hypercalcemia 4. Generalized weakness 5. Obstruction of kidney 6. Leukocytosis 7. Transaminitis Pain Ratin Pain Location: Epigastric and right upper abdominal pain on movement Pain Goal: Pain 4 or less Pain Plan: Acetaminophen 650 every 6 when necessary Oxycodone again 10 mg every 6 when necessary Morphine 2 mg IV every 6 when necessary Tomorrow's Labs & Rationales: CMP and calcium at 7 PM this evening CBC, CMP and calcium tomorrow morning
--- NOTE | 2016-12-22 07:33 | PN- Urology ---
Subjective Subjective: Lying in bed. No acute distress Objective Vital Signs and I&Os Vital Signs Date Time Temp Pulse Resp B/P Pulse O2 O2 Flow FiO2 Ox Delivery Rate 12/22 0046 98.0 100 20 164/80 95 Room Air 12/21 0752 97.8 102 20 154/70 96 Room Air Intake & Output 12/22 0800 12/22 0000 12/21 1600 12/21 0800 12/21 0000 12/20 1600 Intake Total 50 1275 1000 Output Total Balance 50 1275 1000 Intake, IV 875 1000 Intake, Oral 50 400 Number 1 Bowel Movements Patient 185 lb Weight Abd: RUQ tenderness without rebound Genitalia: penile prosthesis in place Repeat PSA=1.5 Laboratory Tests 12/22 12/22 12/21 0640 0640 1947 Chemistry Sodium Pending Potassium Pending Chloride Pending Carbon Dioxide Pending Anion Gap Pending BUN Pending Creatinine Pending BUN/Creatinine Ratio Pending Calcium (8.4 - 10.2 mg/dL) 14.9 *H Total Testosterone Pending Free Testosterone Pending Hematology CBC w Diff Pending WBC Pending RBC Pending Hgb Pending Hct Pending MCV Pending MCH Pending RDW Pending Plt Count Pending MPV Pending PUBS MCHC Pending Assessment/Plan Assessment/Plan Imp: 1. Metastatic prostate ca, ? small cell. Also ? of a 2nd primary based on liver mets 2. R hydronephrosis due to retroperitoneal adenopathy Plan: 1. Agree with oncology that liver bx is appropriate to get tissue dx 2. Would hold off on drainage of R kidney at this point until dx is established. Unlikely that his R hydro will be adequately drained with a stent and he may require R perc nephrostomy in future depending on clinical course and tissue diagnosis
[2016-12-22 07:53] VITALS: BP 160/84
[2016-12-22 08:10] LABS: ABSOLUTE BASOPHIL COUNT 0 /CUMM (0.0-0.2); ABSOLUTE EOSINOPHIL COUNT 0.1 /CUMM (0.0-0.7); ABSOLUTE GRANULOCYTE CT 13.6 /CUMM (1.4-6.5); ABSOLUTE LYMPH COUNT 1.4 /CUMM (1.2-3.4); ABSOLUTE MONOCYTE COUNT 1.6 /CUMM (0.10-0.60); BASOPHIL % 0.2 % (0.0-2.0); EOSINOPHIL % 0.7 % (0-5); GRANULOCYTE % 81.3 % (42.2-75.2); HEMATOCRIT 34.3 % (42-52); MEAN CORPUSCULAR HGB 27.5 PG (27.0-31.0); MEAN CORPUSCULAR HGB CONC 32.2 G/DL (33.0-37.0); MEAN CORPUSCULAR VOLUME 85.5 FL (80.0-94.0); MEAN PLATELET VOLUME 10.3 FL (7.4-10.4); PLATELET COUNT 235 /CUMM (130-400); RBC DISTRIBUTION WIDTH 13.4 % (11.5-14.5); RED BLOOD CELL CT 4.01 /CUMM (4.70-6.10); WHITE BLOOD CELL COUNT 16.7 /CUMM (4.8-10.8)
--- NOTE | 2016-12-22 08:59 | PN- Oncology ---
Subjective Subjective: He reports pain is improved but still persistent. Pain is worse with movement. Pain is in the abdomen. Review of Systems: Constitutional: Reports: malaise, weakness. Denies: chills, fever. Cardiovascular: Denies: chest pain. Respiratory: Denies: short of breath. GI: Reports: abdominal pain, bloating. Denies: melena. Genitourinary: Denies: dysuria, hematuria. Musculoskeletal: Reports: back pain, joint pain, muscle pain. Neurological/Psychological: Reports: confusion. All Other Systems: Reviewed and Negative Objective Vital Signs and I&Os Vital Signs Date Time Temp Pulse Resp B/P Pulse O2 O2 Flow FiO2 Ox Delivery Rate 12/22 0753 97.5 100 20 160/84 95 Room Air 12/22 0046 98.0 100 20 164/80 95 Room Air Intake & Output 12/22 1600 12/22 0800 12/22 0000 12/21 1600 12/21 0800 12/21 0000 Intake Total 344 48 2879 Output Total Balance 369 16 3911 Intake, IV 875 Intake, Oral 100 50 400 Number 1 Bowel Movements Patient 83.915 kg Weight Physical Exam: General Appearance: alert, awake, mild distress Head: atraumatic, normal appearance Eyes: Bilateral: PERRL. Ears, Nose, Throat: normal pharynx Neck: normal inspection Respiratory: normal breath sounds, chest non-tender, no respiratory distress, quiet respiration Cardiovascular: tachycardia Gastrointestinal: normal bowel sounds, soft, tenderness Extremities: no edema Neurologic/Psych: awake, alert, confused at times Current Medications: Current Medications Sig/Gagandeep Start time Last Medication Dose Route Stop Time Status Admin Acetaminophen 650 MG Q6P PRN 12/20 1800 AC PO Bicalutamide 50 MG DAILY 12/21 1000 AC 12/21 PO 1039 Bisacodyl 10 MG DAILY PRN 12/21 1330 AC OK Bisacodyl 5 MG DAILY 12/21 1330 AC 12/21 PO 1828 Calcitonin [place] 340 UNITS Q12 12/22 1000 AC IM 12/22 220 Ceftriaxone Sodium 1,000 MG DAILY 12/21 1000 AC 12/21 IV 1039 Heparin Sodium 5,000 UNIT Q8 12/20 2200 AC 12/22 (Porcine) SC 0647 Hydroxychloroquine 200 MG BID 12/21 1000 AC 12/21 Sulfate PO 220 Morphine Sulfate 2 MG Q6PRN PRN 12/20 1800 AC 12/21 IV 0602 Non-Formulary 0 SEE ADMIN CRITERIA 12/27 0900 DC Medication ANY Oxycodone HCl 10 MG Q6P PRN 12/20 1800 AC PO Polyethylene Glycol 17 GM DAILY 12/20 1800 AC 12/21 PO 1039 Senna/Docusate Sodium 2 TAB DAILY PRN 12/20 1800 AC 12/21 PO 1044 Sodium Chloride 1,000 ML Q10H 12/22 0745 AC IV 12/22 1744 Sodium Chloride 1,000 ML ONCE ONE 12/22 0730 CAN IV 12/22 1229 Results Last 24 Hours of Lab Results: Laboratory Tests 12/22 12/22 12/21 0640 0640 1947 Chemistry Sodium (137 - 145 mmol/L) 148 H Potassium (3.5 - 5.1 mmol/L) 3.8 Chloride (98 - 107 mmol/L) 115 H Carbon Dioxide (22 - 30 mmol/L) 22 Anion Gap (5 - 16) 10 BUN (9 - 20 mg/dL) 36 H Creatinine (0.7 - 1.2 mg/dL) 1.4 H Estimated GFR (>60 ml/min) 50 L BUN/Creatinine Ratio (7 - 25 %) 25.7 H Calcium (8.4 - 10.2 mg/dL) 14.9 *H 14.9 *H Total Testosterone Pending Free Testosterone Pending Hematology CBC w Diff NO MAN DIFF REQ WBC (4.8 - 10.8 /CUMM) 16.7 H RBC (4.70 - 6.10 /CUMM) 4.01 L Hgb (14.0 - 18.0 G/DL) 11.0 L Hct (42 - 52 %) 34.3 L MCV (80.0 - 94.0 FL) 85.5 MCH (27.0 - 31.0 PG) 27.5 RDW (11.5 - 14.5 %) 13.4 Plt Count (130 - 400 /CUMM) 235 MPV (7.4 - 10.4 FL) 10.3 Gran % (42.2 - 75.2 %) 81.3 H Lymphocytes % (20.5 - 51.1 %) 8.2 L Monocytes % (1.7 - 9.3 %) 9.6 H Eosinophils % (0 - 5 %) 0.7 Basophils % (0.0 - 2.0 %) 0.2 Absolute Granulocytes (1.4 - 6.5 /CUMM) 13.6 H Absolute Lymphocytes (1.2 - 3.4 /CUMM) 1.4 Absolute Monocytes (0.10 - 0.60 /CUMM) 1.6 H Absolute Eosinophils (0.0 - 0.7 /CUMM) 0.1 Absolute Basophils (0.0 - 0.2 /CUMM) 0 PUBS MCHC (33.0 - 37.0 G/DL) 32.2 L Recent Imaging Studies: Bone scan 12/21/2016: 1. The liver shows heterogeneous abnormal increased radiotracer activity, when correlating with prior CT study, the finding is highly concerning for metastatic disease. Image guided biopsy of the liver may be considered for definitive tissue diagnosis, if clinically appropriate. 2. There is no concordant abnormal radiotracer activity identified corresponding to previous CT detected multifocal lytic abnormality seen involving the thoracolumbar spine. This may be related to technical limitation of the planar imaging. Follow-up MRI of the entire spine with and without contrast may be considered for further full detail evaluation, if clinically appropriate. 3. Specifically, except for interval development of heterogeneous abnormal activity within the liver, no other significant interval change is present within the entire axial, appendicular skeleton since the prior study dated 05/28. Chest CT 12/21/2016: 1. Multiple pulmonary nodules measuring up to 1.1 cm, most compatible with metastatic disease. 2. Multiple lytic osseous metastatic foci within the thoracic spine and ribs. No pathologic fractures are identified. 3. Patchy, ill-defined nodular foci of airspace disease in the right upper and right lower lobes, potentially due to superimposed aspiration or pneumonia. 4. Hepatic metastatic disease, better seen on the prior CT abdomen pelvis. 5. Borderline enlarged paraesophageal lymph node at the diaphragmatic hiatus. Assessment/Plan Assessment/Recommendations: Mr. Chauhan is a 71-year-old male with recently diagnosed metastatic prostate cancer on Lupron and Casodex who presents with new weakness, diffuse pain, and abdominal pain. He was diagnosed with prostate cancer in 2002 and underwent radical prostatectomy with postoperative RT. He was found to have elevated PSA of 9.9 in 05/2016. Scan demonstrated no bone disease but does not RP adenopathy. He was started on Lupron/Casodex in 06/2016. He presents now with hypercalcemia with calcium of 17.2, leukocytosis, numerous metastatic disease in lymph nodes, bone, liver, spleen, and potentially small lung lesion. This is concerning for prostate cancer. PSA is normal at 1.5. CT of the chest and bone scan demonstrated diffuse disease in the lung and liver. There are lytic lesions in bones but limited bone scan activity. He may have a new primary disease versus a small cell variant prostate given the aggressive nature of the disease and normal PSA. He should have tissue biopsy to make a definitive diagnosis. This will help guide therapy. For his hypercalcemia, he should be maintained on IVF. Calcitonin can be given. He may need another dose of pamidronate. He should have calcium corrected. This may help his overall mental status. There is going to be a family meeting regarding goals of care. Current diagnosis is unclear. Recommendations: 1. Obtain liver biopsy 2. Continue aggressive hydration 3. Start calcitonin 4. Consider another dose of pamidronate if still persistent hypercalcemia 5. CT of the head Please call [phone] with any questions or concerns. Problem List: 1. Prostate CA 2. Metastatic disease 3. Hypercalcemia 4. Leukocytosis 5. Transaminitis
[2016-12-22 14:30] VITALS: BP 175/91
--- NOTE | 2016-12-22 20:24 | NUR ---
NURSING NOTE: PATIENT'S BP 175/91 P 134. [employer] JI IS AWARE AND ORDERED ATIVAN ONE TIME DOSE FOR PATIENT. PATIENT IS GOING TO GO TO INPATIENT HOSPICE PER JI.
--- NOTE | 2016-12-23 05:37 | Discharge Summary ---
Hospital Course Allergies: Coded Allergies: No Known Allergies (12/20/16)
--- NOTE | 2016-12-23 16:19 | Discharge Summary ---
Visit Information Visit Dates Admission Date: 12/20/16 Discharge Date: 12/22/16 Hospital Course Course Attending Physician: INDIRA ESTEBAN,SHELL Wells Primary Care Physician: AKIL BACK,TINO Sanchez Hospital Course: This is a 71-year-old very pleasant gentleman with a past medical history of prostate cancer status post prostatectomy 2002 and post op RT, currently following with Dr. Cartwright, on Lupron and bicalutamide therapy, HLD, thyroid disorder, rheumatoid arthritis, erosive gastritis, presents to [place] [facility] with complaints of a constellation of symptoms. Patient reported generalized weakness, abdominal pain, decreased appetite, constipation, and inability to ambulate around the house. These symptoms started about 3-4 months ago, however in the past 2 weeks, his symptoms have progressively worsen. Pt localizes his abdominal pain around the right hypochondriac region, sometimes radiating to his back, describing it as sharp pain and rating it a 10 out of 10 when is worse. Pain is worsened by movement, and is not related to food intake. No associated nausea, vomiting or diarrhea. Patient denied any shortness of breath, chest pain, palpitation, fever, chills, nausea, vomiting, dysuria, muscle spasm/ twitching, or confusion. At baseline, patient states that he is independent with his ADLs and ambulates around the house with an aide of a walker. Patient was admitted to General Medical Floor for the following problems: Problem list 1-hypercalcemia 2-metastatic disease/history of prostate cancer 3-acute kidney injury 4-hyperkalemia 5-lactic acidosis 6-constipation 7-rheumatoid arthritis #Hypercalcemia -Patient presented with calcium of 17.2, mostly malignancy related -Patient received aggressive hydration IV fluid 200 mL per hour yesterday, will switch to D5 half-normal saline 100 mg/h continuous infusion -Patient received 1 dose of IV pamidronate -Calcium is continue to be at the plateau level of 14.9 -Calcitonin 340 units every 12 IM -Calcium measurement every 8 -Hematology oncology is on board, thanks the recommendation #Metastatic disease -Patient has history of prostate cancer status post prostatectomy and post op radiotherapy in 2002, he didn't follow with urologist after that however he started to see Dr. Dick May 2016 and was started on bicalutamide and Lupron hormonal therapy. The patient reported following up with oncologist at [facility] for one year after the procedure in 2002. -We reached out to [facility] for old records, unfortunately it has been more than 10 year since the procedure and all of the records were destroyed -CT abdomen and pelvis on admission showed extensive hepatic metastasis with transaminitis and bone metastasis -CT chest revealed metastatic lung cancer and bone lesion of thoracic spine and ribs -Bone scan revealed osteolytic regions, no bone uptake of radioactive agent -Hematology oncology and urology consultation were with obtained, thanks for recommendations -Patient presented with multiple metastasis without elevation of PSA, 1.53, was 9.9 in May 2016, patient could have new onset of prostate cancer of small cell type that has normal PSA level or has developed new primary malignant tumor -Recommendation to obtain CT head and liver biopsy were made by oncologist -On CT patient had right renal hydronephrosis due to obstruction of right ureter by retroperitoneal lymphadenopathy, per urology, there is no need for urgent stent placement. Possible future plan for right nephrostomy. -Continue Lupron injection, due for next injection is first week of December 2016 -Continue Casodex 50 mg daily by mouth #Leukocytosis -On day of discharge 16.7 <17.2< 18.4 -Most likely hemoconcentration given findings of physical examination on admission that suggest dehydration and elevated BUN/creatinine ratio -Patient is receiving empirical coverage with ceftriaxone 100 mg IV given for presentarion of right hydronephrosis -Blood culture is pending -UA negative -Patient remained afebrile #Lactic acidosis -On presentation 2.6 start to trend down, today is 1.9 -Could be malignancy related superimposed by dehydration #Hyperkalemia -Resolved #Constipation -Patient presented with chronic history of constipation -Last bowel movement was last week, small bowel movement with flatus after [place] exam on ED -CT abdomen and pelvis on admission revealed diverticulosis of left colon sigmoid without diverticulitis. No acute change of the bowel. No bowel obstruction. No bowel wall thickening or edema. -Continue aggressive bowel regimen #Rheumatoid arthritis -Continue hydroxychloroquine 200 mg by mouth twice a day DVT prophylaxis heparin subcutaneous Diet patient failed swallowing evaluation, he couldn't initiate swallowing, nothing by mouth Code DNR/DNI Consultation hematology oncology, urology Note: We had a meeting with patient's Mrs. Zuniga which is also his power of attorney recruiter, patient has no wishes for any aggressive intervention, would hold for CT head and liver biopsy, patient will be discharged to inpatient hospice services. Images CT of the abdomen and pelvis 12/20/16 IMPRESSION: 1. Extensive hepatic metastasis. 2. Osseous metastasis. Bone scan could be helpful for further assessment. 3. Retroperitoneal adenopathy. This is causing obstruction of the right kidney. 4. Low attenuating mass and spleen suspicious for metastasis. 5. Penile implant. 6. Status post prostatectomy. 7. 0.8 cm lung nodule right lower lobe. This is suspicious for metastasis. Consider CT chest for further evaluation. CT chest 12/21/16 IMPRESSION: 1. Multiple pulmonary nodules measuring up to 1.1 cm, most compatible with metastatic disease. . Right upper lobe, suprahilar, 1.1 cm, image 20 . Right upper lobe, lateral, 0.4 cm, image 22 . Right middle lobe, posterolateral, juxtapleural, 0.9 cm, image 33 . Left upper lobe, posterolateral, juxtapleural, 0.9 cm, image 27 2. Multiple lytic osseous metastatic foci within the thoracic spine and ribs. No pathologic fractures are identified. 3. Patchy, ill-defined nodular foci of airspace disease in the right upper and right lower lobes, potentially due to superimposed aspiration or pneumonia. 4. Hepatic metastatic disease, better seen on the prior CT abdomen pelvis. 5. Borderline enlarged paraesophageal lymph node at the diaphragmatic hiatus. Bone scan 12/21/69 IMPRESSION: 1. The liver shows heterogeneous abnormal increased radiotracer activity, when correlating with prior CT study, the finding is highly concerning for metastatic disease. Image guided biopsy of the liver may be considered for definitive tissue diagnosis, if clinically appropriate. 2. There is no concordant abnormal radiotracer activity identified corresponding to previous CT detected multifocal lytic abnormality seen involving the thoracolumbar spine. This may be related to technical limitation of the planar imaging. Follow-up MRI of the entire spine with and without contrast may be considered for further full detail evaluation, if clinically appropriate. 3. Specifically, except for interval development of heterogeneous abnormal activity within the liver, no other significant interval change is present within the entire axial, appendicular skeleton since the prior study dated 05/28/2016. Allergies: Coded Allergies: No Known Allergies (12/20/16) Disposition Summary Disposition Principal Diagnosis: Metastatic disease/history of prostate cancer Additional Diagnosis: Hypercalcemia Acute kidney injury Constipation Rheumatoid arthritis Discharge Disposition: hospice - medical facilit Discharge Instructions General Discharge Information Code Status: Hospice Patient's Diet: As tolerated Patient's Activity: As tolerated Follow-Up Instructions/Appts: Patient was discharged to inpatient hospice Copies To: AKIL BCAK,TINO Sanchez; JOCELYNE ESTEBAN,DANNIELLE Jacques; PK ESTEBAN,CHERIE Attending MD Review Statement Documenting Attending: INDIRA ESTEBAN,SHELL Wells Other Findings: Pt being discharged from medical service and being admitted to inpatient hospice.
== END 2016-12-22 21:46 | disposition hospice, home (50) | DRG 641 ==
LOC: ENRESERVDT → ENRESERVTM → ERH 11:49 → ERHI 18:11 → 2NB 18:11 → 2NA 12-22 20:10
PROVIDERS: Physician Assistant Surgical; Preventive Medicine Public Health & General Preventive Medicine; Student in an Organized Health Care Education/Training Program; ADMIT Internal Medicine
DX: E83.52 Hypercalcemia (principal); R64 Cachexia; C78.7 Secondary malignant neoplasm of liver and intrahepatic bile duct; C79.51 Secondary malignant neoplasm of bone; C61 Malignant neoplasm of prostate; N13.1 Hydronephrosis with ureteral stricture, not elsewhere classified; E86.0 Dehydration; N13.30 Unspecified hydronephrosis; E87.5 Hyperkalemia; R74.0 Nonspecific elevation of levels of transaminase and lactic acid dehydrogenase [LDH]; Z68.25 Body mass index [BMI] 25.0-25.9, adult; Z66 Do not resuscitate; Z51.5 Encounter for palliative care; E78.5 Hyperlipidemia, unspecified; M06.9 Rheumatoid arthritis, unspecified; I10 Essential (primary) hypertension; M10.9 Gout, unspecified; Z87.891 Personal history of nicotine dependence
CPT/HCPCS: 2NBP; 36415; 74177; 81003; 82436; 84403; 87040; 93005; 93010; 97162-GP; 97530-GO; A9561; J0630; J0696; J1644; J2430; J7042; J9202

== ENCOUNTER 2016-12-22 21:46 | Inpatient (IN) | payer OTHER ==
[~2016-12-22 21:46] MED LIST: ADVIL200 M1 PO; BICALUTAMIDE50 M1 PO; HYDROXYCHLOROQ200 M2 PO; LUPRON DEPOT45 M1 IM; PREDNISONE5 M1 PO; VOLTAREN100 GM TOP
[2016-12-23 06:30] VITALS: BP 140/70
--- NOTE | 2016-12-23 14:52 | PN- Gen Med ---
Assessment/Plan Assessment: This is a 71-year-old male with an extensive history of prostate cancer s/p prostatectomy 2002 and post op RT who presents now with hypercalcemia with calcium of 17.2, leukocytosis, numerous metastatic disease in lymph nodes, bone, liver, spleen, and potentially small lung lesion. This is concerning for prostate cancer. PSA is normal at 1.5. CT of the chest and bone scan demonstrated diffuse disease in the lung and liver. There are lytic lesions in bones but limited bone scan activity. Per oncology, he may have a new primary disease versus a small cell variant prostate given the aggressive nature of the disease and normal PSA. Pt. has been confused and did not pass swallow evaluation, and /POA made decision after meeting re: goals of care and with knowledge of pt's previously expressed wishes, for hospice level of care. Earlier today pt was quite dyspneic, restless and with copious tracheal secretions. Currently comfortable. Problem List: 1. Prostate CA 2. Metastatic disease 3. Dysphagia Plan: Morphine was scheduled 2mg every 4 hours with as needed order for 2mg every 1 hr. Ativan was scheduled 1mg every 8 hrs. with as needed order for 1mg every 2 hrs. Oral medications were discontinued. Scopolamine patch was increased to #3, every 72 hrs., robinul was scheduled 400mcg every 4 hours. Subjective Follow-up For: metastatic prostate cancer Subjective: Currently unresponsive. Has received morphine 13mg over last 24 hours for pain/ tachypnea and ativan 2.5mg for anxiety/restlessness. Now appears comfortable. Review of Systems Constitutional: Reports: see HPI. Objective Last 24 Hrs of Vital Signs/I&O Vital Signs Date Time Temp Pulse Resp B/P Pulse O2 O2 Flow FiO2 Ox Delivery Rate 12/23 0938 Nasal 2.0L Cannula 12/23 0630 97.2 109 20 140/70 93 Room Air 12/23 0000 Nasal 2.0L Cannula Intake & Output 12/23 1600 12/23 0800 12/23 0000 Intake Total 0 Output Total Balance 0 Intake, Oral 0 Number 0 Bowel Movements Physical Exam General Appearance: No Acute Distress, unresponsive to verbal stimuli Cardiovascular: Normal S1, Normal S2, tachycardic Lungs: upper airway rhonchi and mild tracheal congestion Extremities: No Cyanosis, No Edema
--- NOTE | 2016-12-24 10:03 | Discharge Summary ---
Visit Information Visit Dates Admission Date: 12/22/16 Discharge Date: 12/23/16 Hospital Course Course Attending Physician: INDIRA ESTEBAN,SHELL Wells Primary Care Physician: TINO CLEANING Hospital Course: This is a 71-year-old male with an extensive history of prostate cancer s/p prostatectomy 2002 and post op RT who presented to hospital with hypercalcemia with calcium of 17.2, leukocytosis, numerous metastatic disease in lymph nodes, bone, liver, spleen, and potentially small lung lesion. Per oncology, this is concerning for prostate cancer. PSA is normal at 1.5. CT of the chest and bone scan demonstrated diffuse disease in the lung and liver. There are lytic lesions in bones but limited bone scan activity. Per oncology, he may have a new primary disease versus a small cell variant prostate given the aggressive nature of the disease and normal PSA. Pt. has been confused and did not pass swallow evaluation, and /POA made decision after meeting re: goals of care and with knowledge of pt's previously expressed wishes, for hospice level of care. Pt was medicated for abdominal pain and anxiety and kept comfortable until he 12/23/16. Allergies: Coded Allergies: No Known Allergies (12/20/16) Disposition Summary Disposition Principal Diagnosis: Metastatic Prostate cancer Lung metastases Liver Metastases Dysphagia Additional Diagnosis: None Discharge Disposition: Discharge Instructions General Discharge Information Code Status: Hospice Patient's Diet: N/A Patient's Activity: N/A Follow-Up Instructions/Appts: N/A Copies To: TINO CLEANING
== END 2016-12-23 21:24 | disposition expired | DRG 723 ==
LOC: 2NA 21:46
PROVIDERS: ADMIT Internal Medicine
DX: C61 Malignant neoplasm of prostate (principal); C78.00 Secondary malignant neoplasm of unspecified lung; C78.7 Secondary malignant neoplasm of liver and intrahepatic bile duct; R13.10 Dysphagia, unspecified; Z51.5 Encounter for palliative care
CPT/HCPCS: 2NAP; J2060